=== PATIENT | female | born 1950 | race Caucasian/White ===

== ENCOUNTER 2024-01-31 07:35 | Inpatient (IN) | payer MEDICARE, MEDICAID, SELFPAY ==
[2024-01-31] VITALS (14 sets, daily range): BP systolic 126–169; BP diastolic 86–111; PULSE 108–133; RESP 16–24; TEMP 36.4–36.9; O2SAT 85–100; BMI 19.2
--- NOTE | ~2024-01-31 | XR_ITS ---
EXAMINATION: [id number] DATE: 02/01/2024 10:46 INDICATION: Small bowel obstruction. Difficulty with nasogastric tube placement. TECHNIQUE: Fluoroscopy was utilized during attempted placement of a nasogastric tube. 25 mL of Omnipa que 240 water-soluble contrast was injected through the tube to delineate the anatomy at the gastroes ophageal junction into peristalsis to aid in assessment of the tube. This was unsuccessful and the co ntrast within the esophagus was aspirated through the tube prior to removal of the tube. Image 2 imag es images were recorded. The amount of fluoroscopy time used during this procedure was 2.6 minutes. T otal DAP was 5.303 Gycm^2. COMPARISON: CT abdomen and pelvis dated 01/31/2024 FINDINGS: The nasogastric tube was able to be advanced easily to the distal esophagus. Despite multiple attempt s over the course of 10 minutes the nasogastric tube is unable to be advanced beyond what based on pr ior CT appears to be a small hiatal hernia with Richa fundoplication. Over the course of 10 minutes none of the contrast may distal esophagus passed through the gastroesophageal junction. IMPRESSION: 1. Unsuccessful attempt at placement of a nasogastric tube secondary to a likely hiatal hernia with N issen fundoplication which also prevented the passage of contrast in the distal esophagus into the st omach over the course of the 10 minutes of observation while attempting to advance the tube. Reviewed, dictated and finalized at location [facility]. ING MACHINE OPERATOR IMPRESSION: 1. Unsuccessful attempt at placement of a nasogastric tube secondary to a likel y hiatal hernia with Richa fundoplication which also prevented the passage of contrast in the distal esophagus into the stomach over the course of the 10 min utes of observation while attempting to advance the tube.
--- NOTE | ~2024-01-31 | CT_ITS ---
CT of the Abdomen and Pelvis: Indication: Bowel obstruction Technique: 2.5 mm axial scans were obtained through the abdomen and pelvis following intravenous adm inistration of 100 cc of Omnipaque 350. Dose reduction technique was used on this scan by utilizing a utomated exposure control and iterative reconstruction technique. The dose-length product (DLP) was 3 17.82 mGy-cm. Findings: Scans through the lung bases demonstrate probable bibasilar atelectatic change, left worse than right. Left basilar pneumonia not excluded. Small hiatal hernia and probable dilatation the vis ualized distal esophagus.. The liver, spleen, pancreas, gallbladder, adrenals and kidneys are within normal limits. No evidence of aortic aneurysm. No lymphadenopathy. IVC filter present. There are multiple dilated small bowel loops, with abrupt transition point at the distal small bowel (axial image 89, coronal image 43), without discrete mass lesion present. Evidence of prior large bow el surgery. Images through the pelvis are degraded by streak artifact from left hip arthroplasty. Urinary bladder grossly unremarkable. Calcified uterine fibroids are present. No ascites. Compression fractures of T 12 and L2 are present. Impression: Small bowel obstruction, transition point of the distal small bowel, as detailed above. Probable bibasilar atelectatic change. Correlate clinically for left basilar pneumonia. Impression fractures of T12 and L2, age-indeterminate. Calcified uterine fibroids. Reviewed, dictated and finalized at [facility]. APPEALS Impression: Small bowel obstruction, transition point of the distal small bowel, as detaile d above. Probable bibasilar atelectatic change. Correlate clinically for left basilar pn eumonia. Impression fractures of T12 and L2, age-indeterminate. Calcified uterine fibroids.
--- NOTE | 2024-01-31 07:51 | ECG_ITS ---
Test Date: 2024-01-31 07:52:45 Measurements Intervals [place] Rate: 118 P: 62 AK: 138 QRS: 32 QRSD: 76 T: 32 QT: 322 QTc: 452 Interpretive Statements SINUS TACHYCARDIA INDETERMINATE AXIS PATTERN CONSISTENT WITH PULMONARY DISEASE PROBABLE INFERIOR MYOCARDIAL INFARCTION , PROBABLY OLD [35 ms Q WAVE IN II/aVF] ABNORMAL IN SOON Electronically Signed On 01-31-2024 09:02:29 [employer] by Miguel Day M.D.
--- NOTE | 2024-01-31 08:09 | ED_ITS ---
HPI - Nausea/Vomiting/Diarrhea General Chief complaint: Nausea/Vomiting/Diarrhea Stated complaint: r/o SBO Time Seen by Provider: 01/31/24 07:52 Source: patient and RN notes reviewed Mode of arrival: EMS History of Present Illness HPI Narrative: Patient presents from nursing facility with concern for small bowel obstruction. Patient reports that she has been nauseated and vomiting and is experiencing dizziness. She states that she has had chronic diarrhea since March and she was told she would just have to live with this and that there is no cure. Initially she denied having any abdominal surgeries to the nurse however she does have well-healed abdominal surgical scars and when I asked her about this she can definitively say that she had 3/4 of her colon removed due to cancer. She states her last bowel movement was yesterday and it was diarrheal but then she has not had a bowel movement since and this was concerning to her given the fact that her diarrhea has otherwise been chronic before that. She does state that she is continuing to pass flatus. Patient's medication list does have apixaban on it. Related Data Home Medications Medication Instructions Recorded Confirmed Calcium-Vitamin D 1 tab-cap PO DAILY 01/31/24 01/31/24 acetaminophen 500 mg tablet 1,000 mg PO Q6H PRN Pain (Scale 01/31/24 01/31/24 Score 1-3) apixaban 5 mg tablet (Eliquis) 5 mg PO BID 01/31/24 01/31/24 bisacodyl 10 mg rectal suppository 10 mg RECTAL DAILY PRN Constipation 01/31/24 01/31/24 (Dulcolax (bisacodyl)) buspirone 5 mg tablet 5 mg PO TID 01/31/24 01/31/24 diphenoxylate-atropine 2.5 1 tablet PO TID PRN Diarrhea 01/31/24 01/31/24 mg-0.025 mg tablet (Lomotil) gabapentin 100 mg tablet 200 mg PO BID 01/31/24 01/31/24 haloperidol 0.5 mg tablet 0.5 mg PO BID 01/31/24 01/31/24 hydrocodone 5 mg-acetaminophen 325 1 tablet PO QID PRN Pain (Scale 01/31/24 01/31/24 mg tablet Score 4-6) lamotrigine 100 mg tablet 100 mg PO BID 01/31/24 01/31/24 loperamide 2 mg capsule 2 mg PO Q4H PRN Diarrhea 01/31/24 01/31/24 lorazepam 0.5 mg tablet 0.5 mg PO BID PRN Anxiety 01/31/24 01/31/24 magnesium citrate (Citroma oral 296 ml PO DAILY PRN Constipation 01/31/24 01/31/24 solution) magnesium hydroxide 400 mg/5 mL 30 ml PO DAILY PRN Constipation 01/31/24 01/31/24 oral suspension (Milk of Magnesia) mecobalamin (vitamin B12) 1,000 1,000 mcg PO DAILY 01/31/24 01/31/24 mcg chewable tablet metoclopramide HCl 5 mg tablet 5 mg PO TID 01/31/24 01/31/24 (Reglan) midodrine 5 mg tablet 5 mg PO TID PRN Hypotension 01/31/24 01/31/24 multivit with minerals-iron 18 1 tablet PO DAILY 01/31/24 01/31/24 mg-folic ac 400 mcg-vit K 25 mcg tablet (Adults Multivitamin) ondansetron 4 mg disintegrating 4 mg PO Q6H 01/31/24 01/31/24 tablet pantoprazole 40 mg tablet,delayed 40 mg PO DAILY 01/31/24 01/31/24 release paroxetine HCl 40 mg tablet 40 mg PO DAILY 01/31/24 01/31/24 quetiapine 400 mg tablet 400 mg PO HS 01/31/24 01/31/24 quetiapine 50 mg tablet 50 mg PO DAILY 01/31/24 01/31/24 Allergies Allergy/AdvReac Type Severity Reaction Status Date / Time fluconazole Allergy Unknown Verified 01/31/24 08:27 [facility] Past Medical History Medical History Anemia, unspecified Bipolar disorder, unspecified Chronic kidney disease, stage 3a Generalized anxiety disorder Malignant neoplasm of colon, unspecified Type 2 diabetes mellitus without complications Unspecified fracture of fifth metacarpal bone, right hand, subsequent encounter for fracture with routine healing Volvulus Surgical History Surgical History History of abdominal surgery secondary to volvulus History of colon resection History of repair of hiatal hernia Social History Social History Social History: DNR per jail documentation; POLST signed 01/05/24 confirms no CPR/comfort-focused treatment Smoking status: Never smoker Alcohol intake: never Substance use: never Do You Feel Safe in your Home?: Yes Lack of Transportation: No Lack of Food: Never True Current Housing: I Have Housing Concerned About Future Housing: No Difficulty Paying Gas/Electric Bills: No Difficulty Paying for Meds: No Currently Unemployed: No Education: High School Diploma/GED Difficulty w/ Childcare or Family Care: No Living arrangements: jail Additional living arrangements comments: [facility] care concerns: No Exam Narrative: GENERAL: well-nourished, but appears uncomfortable and older than stated age HEAD: Normocephalic, atraumatic. Alopecia. EYES: Non injected, non icteric ENT: Nares clear, no rhinorrhea or epistaxis. NECK: Supple. CHEST: Speaking in full sentences. No respiratory distress. HEART: Tachycardic rate and rhythm. . ABDOMEN: Soft, distended. Nauseated with emesis bag beside her and vomitus on shirt. Tenderness to palpation throughout. WEll healed low hoizontal pelvic/abdominal surgical scar as well one in RLQ. No rigidity and not peritoneal. EXTREMITIES: Normal range of motion. No lower extremity edema. SKIN: Warm, dry, no rash. NEURO: No focal deficits. Alert and oriented x3. Can answer basic health history questions but at other times seems confused. PSYCH: Normal mood and affect. Course Vital Signs Vital signs: Vital Signs Temperature 97.6 F 01/31/24 08:01 Pulse Rate 122 H 01/31/24 08:01 Respiratory Rate 24 H 01/31/24 08:01 Blood Pressure 126/88 01/31/24 08:01 Pulse Oximetry 98 01/31/24 08:01 Temperature 97.7 F 02/01/24 06:00 Pulse Rate 92 02/01/24 06:00 Respiratory Rate 16 02/01/24 06:00 Blood Pressure 121/81 02/01/24 06:00 Pulse Oximetry 98 02/01/24 06:00 Oxygen Delivery Room Air 01/31/24 21:51 MDM - Nausea/Vomiting/Diarrhea MDM Narrative Medical decision making narrative: Patient presents from facility with concern for small bowel obstruction. In the emergency department she is afebrile with vital signs notable for tachycardia and tachypnea. She has a history of chronic diarrhea for nearly a year. My differential diagnosis for chronic diarrhea includes, but not limited to: Infectious (giardia, E histolytica, C difficile), medications (antibiotics, antacids, lactulose, sorbitol, chemotherapy, colchicine, gold), inflammatory etiology (such as IBD, radiation enteritis, ischemic colitis, diverticulitis). Also possible are malabsorption issues due to bile salt deficiency (cirrhosis, cholestasis, ileal disease, bacterial overgrowth), pancreatic insufficiency, mucosal abnormalities (celiac sprue, tropical sprue, Whipple disease), or lactose intolerance. They are also secretory causes such as hormonal (VIP, carcinoid tumor, medullary cancer of thyroid, a linear Pena, glucagon, thyroxine), laxative abuse, neoplasm; finally motility issues may be the cause (IBS, scleroderma, hyperthyroidism, diabetic autonomic neuropathy). However, she has stopped having diarrhea and this is concerning for bowel obstruction especially because patient has a history of colonic resection (thus her chronic diarrhea may be related to short gut.) Patient has very significant leukocytosis and lactic acidosis. Patient has received 1 L fluids from EMS. An additional L is ordered. CT with small bowel obstruction. Given patient has a leukocytosis and lactic acidosis, will initiate antibiotics. NG tube ordered. Patient is noted to be intermittently hypoxic. Patient does not wear oxygen at baseline. Supplemental oxygen is applied via nasal cannula. Patient has very mild hyperglycemia with an anion gap and slight acidosis on her CMP, suspect this is more due to starvation ketosis rather than DKA, especially as urine is without ketones. Considered euglycemic diabetic etiologies but patient is not on diabetic medications that can cause that. Patient elevated creatinine and does have chronic kidney disease stage IIIA listed on problem list from jail. Patient was noted to still be hypoxic however upon bedside evaluation it did appear that the nasal cannula had been removed during NG placement and had accidentally been left off. It was placed again in patient's hypoxia improved. Nevertheless, I believe patient would benefit from continued monitoring given her hemodynamics which continue to show tachycardia and intermittent hypoxia and for this reason she will be admitted to on medical-surgical bed with telemetry. Discussed patient with on-call surgeon Dr. Mendoza who concurs with the management. Patient discussed with on-call nurse practitioner [facility]. Patient states her pain is 8 out of 10 at this time. Additional medication ordered. Medical Records Attestation: I reviewed the patient's medical records. Medical records narrative: Patient had a one-view abdominal x-ray performed 01/30/2024 which had findings consistent with small intestinal obstruction. Follow-up abdominal pelvic CT evaluation with water-soluble oral contrast material and intravenous contrast material recommended for further correlation. Lab Data Attestation: I reviewed the patient's lab results. Lab results narrative: Proteinuria 02/01/24 06:25 02/01/24 06:25 Labs: Lab Results 01/31/24 01/31/24 01/31/24 Range/Units 08:05 08:16 08:21 WBC 21.1 H (4.5-10.0) K/mm3 RBC 5.90 H (4.2-5.4) M/mm3 Hgb 12.2 (12.0-15.0) g/dL Hct 40.0 (37.0-47.0) % MCV 67.8 L (80-100) fl MCH 20.7 L (26-34) pg MCHC 30.5 L (32-36) g/dl RDW 21.6 H (11.5-14.5) % Plt Count 316 (150-375) k/mm3 MPV TNP Immature Gran % (Auto) Not Reportable Neut % (Auto) Not Reportable Lymph % (Auto) Not Reportable [place] % (Auto) Not Reportable Eos % (Auto) Not Reportable Baso % (Auto) Not Reportable Lymph # (Auto) Not Reportable [place] # (Auto) Not Reportable Eos # (Auto) Not Reportable Baso # (Auto) Not Reportable Abs Immat Gran (auto) Not Reportable Absolute Neuts (auto) Not Reportable Absolute Nucleated RBC Not Reportable Total Counted 100 Neutrophils % (Manual) 77 H (46-73) % Band Neutrophils % 14 H (0-6) % Lymphocytes % (Manual) 5 L (18-44) % Monocytes % (Manual) 3 (3-9) % Metamyelocytes % 1 % Nucleated RBC % Not Reportable Abs Neuts (Manual) 19.20 H (1.7-7.2) K/mm3 Abs Lymphs (Manual) 1.05 L (1.1-4.5) K/mm3 Abs Monocytes (Manual) 0.63 (0.1-0.90) K/mm3 Platelet Estimate Adequate (Adequate) Large Platelets Present % Immature Plt Fraction 6.0 (0.9-11.2) % Anisocytosis 1+ Schistocytes None seen Sodium 133 L (137-145) mmol/L Potassium 4.4 (3.4-5.0) mmol/L Chloride 99 (98-107) mmol/L Carbon Dioxide 20 L (22-30) mmol/L Anion Gap 14 H (4-12) mmol/L BUN 27 H (7-17) mg/dL Creatinine 1.30 H (0.7-1.0) mg/dL Estim Creat Clear Calc 25 ml/min Estimated GFR 40 L (59 - ) Glucose 154 H (65-110) mg/dL Lactic Acid 4.8 H* (0.7-2.0) mmol/L Calcium 9.4 (8.4-10.2) mg/dL Magnesium 1.7 (1.6-2.3) mg/dL Total Bilirubin 0.8 (0.2-1.3) mg/dL AST 24 (14-36) U/L ALT 22 (6-35) U/L Alkaline Phosphatase 98 (38-126) U/L Total Protein 8.0 (6.3-8.2) g/dL Albumin 4.4 (3.5-5.1) g/dL Lipase 27 (23-300) U/L Urine Color Yellow (Yellow) Urine Appearance Cloudy H (Clear) Urine pH 5.5 (5.0-9.0) Ur Specific [place] 1.016 (1.001-1.035) Urine Protein 3+ H (Negative) mg/dL Urine Glucose (UA) Negative (Negative) mg/dL Urine Ketones Negative (Negative) mg/dL Ur Blood (Man) Negative (Negative) Urine Nitrate Negative (Negative) Urine Bilirubin Negative (Negative) Urine Urobilinogen 0.2 (<2.0) mg/dL Add Ur Microanalysis Reviewed Leukocyte Esterase Rfl Negative (Negative) YADI/UL Urine RBC 0-2 (0-2) /hpf Urine WBC 0-5 (0-3) /hpf Ur Squamous Epith Cells None seen (Few) /hpf Ur Transition Epith Cell Few H (None Seen) /hpf Urine Bacteria None seen /hpf Urine Casts >20 Granular Casts Present (None) /lpf Urine Mucus Present /lpf Influenza A (RT-PCR) Negative (Negative) Influenza B (RT-PCR) Negative (Negative) SARS-CoV-2 RNA (RT-PCR) Negative (Negative) ABG Data ABG results: 01/31/24 11:42 Puncture Site Right brachial ABG pH 7.402 ABG pCO2 34.6 L ABG pO2 85.3 ABG PO2/FiO2 Ratio 2.67 ABG HCO3 21.0 L ABG O2 Saturation 96.5 ABG O2 Content 18.1 ABG Base Excess -3.0 A-a Gradient 102.4 Oxyhemoglobin 95.1 Total Hemoglobin 13.5 O2 Delivery Device Nasal cannula O2 Liters/Min 3.0 FiO2 32 Attestation: I personally reviewed and interpreted this ABG as follows: Interpretation: Respiratory alkalosis with metabolic acidosis although relatively normal/compensated Imaging Data Radiologist's impression: Impression: Small bowel obstruction, transition point of the distal small bowel, as detailed above. Probable bibasilar atelectatic change. Correlate clinically for left basilar pneumonia. Impression fractures of T12 and L2, age-indeterminate. Calcified uterine fibroids. ECG Data EKG #1: Attestation: I personally reviewed and interpreted this ECG as follows: ECG completion date: 01/31/24 ECG completion time: 07:52 Interpretation: Sinus tachycardia at a rate of 118 beats per minute. NV interval 138. QRS 76. QT/QTC 322/392. Good R-wave progression across the precordial leads. Indeterminate axis as it is equivocal in lead 1, equivocal in AVF and III but upright in II. no T-wave inversions. Discharge Plan Discharge Clinical Impression: Small bowel obstruction, Leukocytosis, Proteinuria, Compression fracture, Acidosis, lactic, Hypoxia, Controlled diabetes mellitus with hyperglycemia Pneumonia Qualifiers: Pneumonia type: due to unspecified organism Laterality: left Lung location: lower lobe of lung Qualified Code(s): J18.9 - Pneumonia, unspecified organism CKD (chronic kidney disease) Qualifiers: Chronic kidney disease stage: stage 3 (moderate) Chronic kidney disease stage 3 subtype: stage 3a (GFR 45-59) Qualified Code(s): N18.31 - Chronic kidney disease, stage 3a Patient Disposition: Still a Patient Condition: Stable
[2024-01-31 08:22] LABS: Hemoglobin 12.2 g/dL (12.0-15.0); Mean Corpuscular HGB Conc 30.5 g/dl (32-36); Mean Corpuscular Hemoglobin 20.7 pg (26-34); Mean Corpuscular Volume 67.8 fl (80-100); Platelet Count Result 316 k/mm3 (150-375); Red Cell Distribution Width 21.6 % (11.5-14.5); White Blood Count 21.1 K/mm3 (4.5-10.0)
[2024-01-31 08:38] LABS: Albumin Level 4.4 g/dL (3.5-5.1); Alkaline Phosphatase 98 U/L (38-126); Anion Gap 14 mmol/L (4-12); Aspartate Amino Transferase 24 U/L (14-36); Bilirubin,Total 0.8 mg/dL (0.2-1.3); Blood Urea Nitrogen 27 mg/dL (7-17); Calcium 9.4 mg/dL (8.4-10.2); Carbon Dioxide 20 mmol/L (22-30); Chloride 99 mmol/L (98-107); Estimated CRCL calculation 25 ml/min; Estimated Glomerular Filt Rate 40; Glucose 154 mg/dL (65-110); Lipase 27 U/L (23-300); Magnesium 1.7 mg/dL (1.6-2.3); Potassium 4.4 mmol/L (3.4-5.0); Sodium 133 mmol/L (137-145)
[2024-01-31 08:48] LABS: Alanine Aminotransferase 22 U/L (6-35)
[2024-01-31 08:48] LABS: Lactic Acid Reflex 4.8 mmol/L (0.7-2.0)
[2024-01-31 08:54] LABS: Add Urine Microscopic? YES; Appearance Urine Cloudy (Clear); Bacteria Urine None Seen /hpf; Bilirubin Urine Negative (Negative); Blood Urine Negative (Negative); Color Urine Yellow (Yellow); Glucose Urine UA Negative (Negative); Granular Casts Urine Present /lpf; Ketones Urine Negative (Negative); Leukocyte Esterase Ur Negative LEU/UL (Negative); Mucus Urine Present /lpf; Need Manual Microscopic Reviewed; Nitrate Urine Negative (Negative); Non Pathogenic Casts >20; Protein Urine 3+ mg/dL (Negative); RBC Urine 0-2 /hpf (0-2); Specific Grav Ur 1.016 (1.001-1.035); Squamous Epithelial Cell Urine None Seen /hpf (Few); Urobilinogen Urine 0.2 mg/dL (<2.0); WBC Urine 0-5 /hpf (0-3); pH Urine 5.5 (5.0-9.0)
[2024-01-31 08:59] LABS: Band Neutrophils Percent 14 % (0-6); Large Platelets Present; Lymphocytes Absolute Manual 1.05 K/mm3 (1.1-4.5); Lymphocytes Percent Manual 5 % (18-44); Metamyelocytes Percent 1 %; Monocytes Absolute Manual 0.63 K/mm3 (0.1-0.90); Monocytes Percent Manual 3 % (3-9); Neutrophils Percent Manual 77 % (46-73); Platelet Estimate Adequate (Adequate); Total Cells Counted 100
[2024-01-31 09:00] LABS: Anisocytosis 1+; Schistocytes None Seen
[2024-01-31 09:04] LABS: Transitional Epi Cells Urine Few /hpf (None Seen)
[2024-01-31 09:35] LABS: Influenza A QL RT-PCR Negative (Negative); Influenza B QL RT-PCR Negative (Negative); SARS-CoV-2 RNA PCR Negative (Negative)
[2024-01-31 11:29] LABS: Reflex Lactic Acid Yes or No Add Lactic
[2024-01-31] MEDS: HYDROmorphone HCL INJ (*CRX) 1 MG/ML SYR 0.5 MG IV PUSH ×3 (11:40→18:43)
[2024-01-31] MEDS: ONDANSETRON INJ 4 MG/2 ML VIAL IV PUSH ×4 (11:40→22:26)
[2024-01-31] MEDS: SODIUM CHLORIDE 0.9% IV 1,000 ML 999 ML IV CONT (11:40)
[2024-01-31 11:48] LABS: Alveolar/Arterial O2 Gradient 102.4 mmHg; Device NASAL CANNULA; Fractional Inspired Oxygen 32 %; Oxygen Content ABG 18.1 %vol (16.0-22.0); Oxygen Saturation ABG 96.5 % (95.0-100.0); Oxyhemoglobin 95.1 % THb (90.0-100.0); PCO2 ABG 34.6 mmHg (35.0-45.0); PO2 ABG 85.3 mmHg (80.0-100.0); PO2 FiO2 Ratio Arterial Blood 2.67 %; Site Drawn RIGHT BRACHIAL; Total Hemoglobin 13.5 g/dL (12.0-18.0); pH ABG 7.402 (7.350-7.450)
[2024-01-31] MEDS: PIPERACILLIN/TAZ 4.5G/NS 100ML 4.5 GM/100 ML BAG IVPB (12:41)
--- NOTE | 2024-01-31 12:47 | P.HP_ITS ---
H&P: HPI History of Present Illness Date/Time: 01/31/24 12:47 Chief Complaint: Abnormal Imaging, Diarrhea Narrative: 73 y/o F presents here with abnormal imaging and diarrhea with PMH of anemia, bipolar disorder or, CKD stage 3, generalized anxiety, malignant neoplasm of the colon s/p resection, diabetes, and volvulus. The patient presents here from [facility] for further evaluation of possible small bowel obstruction seen on outpatient imaging and diarrhea. The patient had outpatient imaging performed at alf yesterday which showed a small intestinal obstruction . She has been experiencing diarrhea and N/V for quite some time. She reports she has been having ongoing diarrhea since Mar. Then developed nausea and vomiting in the last 2 months. She is unsure what prompted the outpatient imaging. She is he has a history of abdominal surgeries including a colon resection secondary to malignant neoplasm of the colon, hiatal hernia repair, and abdominal surgery secondary to a volvulus. Bowel movements have been nonbloody and color has varied (yellow, brown, and green). Estimates she has had 3 episodes of diarrhea in the last 24 hours. Denies cough, shortness of breath, fever, or body aches. Reporting chills. Initial VS at presentation: 97.6 trace F, HR 122, RR 24, 126/80, and 90% on RA. ED workup showed: WBC 21.1, no anemia, mild derangements seen on ABG, sodium 133, creatinine 1.3 and GFR 40 (no previous available for comparison), glucose 154, lactic 4.8, and UA was cloudy with 3+ protein and few epithelial cells. Viral PCR negative. CT of the abdomen/pelvis showed a small-bowel obstruction with the transition point of the distal small bowel, probable by basilar atelectatic changes, correlate clinically for left basilar pneumonia, compression fractures of T12 and L2 age indeterminate, calcified uterine fibroids. Review of Systems Review of Systems: All systems reviewed & are unremarkable except as noted in HPI and below [facility] Past Medical History Medical History Anemia, unspecified Bipolar disorder, unspecified Chronic kidney disease, stage 3a Generalized anxiety disorder Malignant neoplasm of colon, unspecified Type 2 diabetes mellitus without complications Unspecified fracture of fifth metacarpal bone, right hand, subsequent encounter for fracture with routine healing Volvulus Surgical History Surgical History History of abdominal surgery secondary to volvulus History of colon resection History of repair of hiatal hernia Social History Social History Social History: DNR per alf documentation; POLST signed 01/05/24 confirms no CPR/comfort-focused treatment Smoking status: Never smoker Alcohol intake: never Substance use: never Do You Feel Safe in your Home?: Yes Lack of Transportation: No Lack of Food: Never True Current Housing: I Have Housing Concerned About Future Housing: No Difficulty Paying Gas/Electric Bills: No Difficulty Paying for Meds: No Currently Unemployed: No Education: High School Diploma/GED Difficulty w/ Childcare or Family Care: No Living arrangements: alf Additional living arrangements comments: Nabila Kirby [place] Spiritual care concerns: No Meds Home Medications and Allergies Home Medications Medication Instructions Recorded Confirmed Type Calcium-Vitamin D 1 tab-cap PO DAILY 01/31/24 01/31/24 History acetaminophen 500 mg tablet 1,000 mg PO Q6H PRN Pain (Scale 01/31/24 01/31/24 History Score 1-3) apixaban 5 mg tablet (Eliquis) 5 mg PO BID 01/31/24 01/31/24 History bisacodyl 10 mg rectal suppository 10 mg RECTAL DAILY PRN Constipation 01/31/24 01/31/24 History (Dulcolax (bisacodyl)) buspirone 5 mg tablet 5 mg PO TID 01/31/24 01/31/24 History diphenoxylate-atropine 2.5 1 tablet PO TID PRN Diarrhea 01/31/24 01/31/24 History mg-0.025 mg tablet (Lomotil) gabapentin 100 mg tablet 200 mg PO BID 01/31/24 01/31/24 History haloperidol 0.5 mg tablet 0.5 mg PO BID 01/31/24 01/31/24 History hydrocodone 5 mg-acetaminophen 325 1 tablet PO QID PRN Pain (Scale 01/31/24 01/31/24 History mg tablet Score 4-6) lamotrigine 100 mg tablet 100 mg PO BID 01/31/24 01/31/24 History loperamide 2 mg capsule 2 mg PO Q4H PRN Diarrhea 01/31/24 01/31/24 History lorazepam 0.5 mg tablet 0.5 mg PO BID PRN Anxiety 01/31/24 01/31/24 History magnesium citrate (Citroma oral 296 ml PO DAILY PRN Constipation 01/31/24 01/31/24 History solution) magnesium hydroxide 400 mg/5 mL 30 ml PO DAILY PRN Constipation 01/31/24 01/31/24 History oral suspension (Milk of Magnesia) mecobalamin (vitamin B12) 1,000 1,000 mcg PO DAILY 01/31/24 01/31/24 History mcg chewable tablet metoclopramide HCl 5 mg tablet 5 mg PO TID 01/31/24 01/31/24 History (Reglan) midodrine 5 mg tablet 5 mg PO TID PRN Hypotension 01/31/24 01/31/24 History multivit with minerals-iron 18 1 tablet PO DAILY 01/31/24 01/31/24 History mg-folic ac 400 mcg-vit K 25 mcg tablet (Adults Multivitamin) ondansetron 4 mg disintegrating 4 mg PO Q6H 01/31/24 01/31/24 History tablet pantoprazole 40 mg tablet,delayed 40 mg PO DAILY 01/31/24 01/31/24 History release paroxetine HCl 40 mg tablet 40 mg PO DAILY 01/31/24 01/31/24 History quetiapine 400 mg tablet 400 mg PO HS 01/31/24 01/31/24 History quetiapine 50 mg tablet 50 mg PO DAILY 01/31/24 01/31/24 History Allergies Allergy/AdvReac Type Severity Reaction Status Date / Time fluconazole Allergy Unknown Verified 01/31/24 08:27 Vital Signs Vital Signs - 24 hr 01/31/24 08:14 01/31/24 08:01 01/31/24 08:31 Temperature 97.6 F Pulse Rate 124 H 122 H 108 H Respiratory Rate 24 H 24 H 24 H Blood Pressure 139/99 H 126/88 140/86 Pulse Oximetry 95 98 96 Oxygen Delivery Room Air 01/31/24 09:16 Temperature 97.6 F Pulse Rate 119 H Respiratory Rate 19 Blood Pressure 169/111 H Pulse Oximetry 92 Oxygen Delivery Exam Const: General: comfortable and no acute distress Other: , female, elderly, chronically ill-appearing HENMT: Face/Nose/Sinus: Normal nares present Other: Tried tacky mucous membranes Eyes: General: appearance normal, both eyes and all related structures Sclera: sclerae normal Pupils: Equal, round and reactive pupils present EOM: EOMs intact bilaterally Resp: Effort & Inspection: normal respiratory effort Auscultation: clear to auscultation bilaterally Cardio: Rate: tachycardic (100-118) Rhythm: regular rhythm Other: Pounding quality without murmur or rub. GI: Other: Abdomen soft, nondistended. Tender in the left upper quadrant and left mid quadrant. Hypoactive bowel sounds in the upper quadrants and left lower quadrant, worse in the left lower quadrant. Normoactive bowel sounds in the right lower quadrant. Skin: General skin exam: normal color and no rashes or lesions noted Wounds: no wounds Neuro: Speech: normal speech Motor exam (neuro): 5/5 motor strength present throughout Sensory Exam: normal sensation Other: A&O x3, for recent situational recall. Extrem: Other: Trace edema to bilateral ankles, symmetric Psych: Mental Status: mental status grossly normal Affect: normal affect Other: Fair to poor insight and judgment, pleasant H&P: Results Labs Labs: Short CBC 01/31/24 Range/Units 08:05 WBC 21.1 H (4.5-10.0) K/mm3 Hgb 12.2 (12.0-15.0) g/dL Hct 40.0 (37.0-47.0) % Plt Count 316 (150-375) k/mm3 BMP 01/31/24 08:05 Sodium 133 L Potassium 4.4 Chloride 99 Carbon Dioxide 20 L BUN 27 H Creatinine 1.30 H Glucose 154 H Calcium 9.4 Liver Function 01/31/24 Range/Units 08:05 Total Bilirubin 0.8 (0.2-1.3) mg/dL AST 24 (14-36) U/L ALT 22 (6-35) U/L Alkaline Phosphatase 98 (38-126) U/L Albumin 4.4 (3.5-5.1) g/dL Urine 01/31/24 Range/Units 08:05 Urine Color Yellow (Yellow) Urine Appearance Cloudy H (Clear) Urine pH 5.5 (5.0-9.0) Ur Specific [place] 1.016 (1.001-1.035) Urine Protein 3+ H (Negative) mg/dL Urine Glucose (UA) Negative (Negative) mg/dL Assessment and Plan Assessment and plan (1) Sepsis: Qualifiers: Acute respiratory failure type: with hypoxia Sepsis acute organ dysfunction status: with acute organ dysfunction Sepsis type: sepsis due to u nspecified organism Severe sepsis acute organ dysfunction type: acute respiratory failure Severe sepsis shock status: without septic shock Qualified Code(s): A41.9 - Sepsis, unspecified organism; R65.20 - Severe sepsis without septic shock; J96.01 - Acute respiratory failure with hypoxia Code(s): A41.9 - Sepsis, unspecified organism Status: Acute Assessment and Plan: - meets SIRS criteria: HR, RR. Borderline hypoxia. - lactic acid: 4.8 -> 3.6, trend down - lactic elevated, procalcitonin added - 30 mL/kg = 1770, 2L bolus ordered - suspected source: possible abdominal etiology given obstruction, PNA - started on Zosyn in azithromycin on 01/30 - blood cultures drawn on 01/30 - UA: Cloudy, 3+ protein, few epithelial cells - CXR pending (2) Small bowel obstruction: Code(s): K56.609 - Unspecified intestinal obstruction, unspecified as to partial versus complete obstruction Status: Acute Assessment and Plan: - CT abd/pelvis Small bowel obstruction, transition point of the distal small bowel, as detailed above. Probable bibasilar atelectatic change. Correlate clinically for left basilar pneumonia. Impression fractures of T12 and L2, age-indeterminate. Calcified uterine fibroids. - bowel rest, NG unable to be placed in ED - general surgery consulted - IV fluids: 2L bolus -> 100 mL/hr - monitor I&Os - started on Zosyn on 01/30 - obtain c. diff and stool culture - hold Eliquis, start SCDs (3) Pneumonia: Qualifiers: Laterality: left Lung location: lower lobe of lung Pneumonia type: due to unspecified organism Qualified Code(s): J18.9 - Pneumonia, unspecified organism Code(s): J18.9 - Pneumonia, unspecified organism Status: Acute Assessment and Plan: - CT abd/pelvis: possible left basilar pneumonia, correlate clinically. - given borderline hypoxia, will obtain dedicated CXR and initiate coverage for community-acquired pneumonia - risk factors and complicating factors: [place] resident - started on CAP tx: Zosyn and doxycycline on 01/30 - MRSA PCR added - Viral PCR negative - no current supplemental O2 requirement, patient O2 sats borderline at 91-92% - supportive care (4) CKD (chronic kidney disease): Qualifiers: Chronic kidney disease stage: stage 3 (moderate) Chronic kidney disease stage 3 subtype: stage 3a (GFR 45-59) Qualified Code(s): N18.31 - Chronic kidney disease, stage 3a Code(s): N18.9 - Chronic kidney disease, unspecified Status: Chronic Assessment and Plan: - creatinine 1.3 and GFR 40, no baseline available - start with IV fluids, reassess function prior to further workup - trend renal function - trend electrolytes, correct as needed (5) Controlled diabetes mellitus with hyperglycemia: Code(s): E11.65 - Type 2 diabetes mellitus with hyperglycemia Status: Chronic Assessment and Plan: - hypoglycemia protocol - POC blood glucose ACHS - no current home medications - correct regimen ordered - low dose TIDWM, based off BMI - A1C ordered, none on file Plan Diet: NPO GI Prophylaxis: Pantoprazole IVP DVT Prophylaxis: SCDs, hold Eliquis in case of need for procedure Lines: Peripheral Code Status: DNR Quality VTE Prophylaxis VTE prophylaxis: mechanical ordered Hospitalist MIPS Advance Care Plan I have confirmed that the patient's Advanced Care Plan is present, code status is documented, or surrogate decision maker is listed in patient medical record.: Yes Medication Reconciliation I have utilized all available resources to obtain, update and review the patients current medications (includes all prescriptions, OTC, herbals, cannabis, and nutritional supplements).: Yes
--- NOTE | 2024-01-31 13:13 | PC.NURSE ---
4 unscuccessful NGT placement.
[2024-01-31 13:18] LABS: Lactic Acid 3.6 mmol/L (0.7-2.0)
[2024-01-31 13:24] LABS: Beta-Hydroxybutyrate/Acetoacetate 0.13 mmol/L (0.02-0.27)
[2024-01-31] MEDS: AZITHROMYCIN IV 250 MG in SODIUM CHLORIDE 0.9% IV 250 ML 125 MG IVPB (14:09)
[2024-01-31] MEDS: LACTATED RINGERS 1,000 ML 100 ML IV CONT (14:12)
--- NOTE | 2024-01-31 14:13 | ADMGEN ---
This patient, Cristel Dumont, was admitted to [facility] Surg Room 320-01. Patient/family oriented to hospital policies and general routines including ID bracelet, bed and alarms, visiting hours, pain management, procedures, bathroom and other care routines, personal items, smoking policy, room service/diet, and visiting hours. Information on how to activate the Rapid Response Team has been discussed. Patient/Family are encouraged to report perceived risks to care and to ask questions if they do not understand what they are told or what they should do.
[2024-01-31 14:30] LABS: Procalcitonin 0.5 ng/mL
--- NOTE | 2024-01-31 15:25 | PM.CNGS ---
Assessment and Plan Assessment and plan (1) Small bowel obstruction: Code(s): K56.609 - Unspecified intestinal obstruction, unspecified as to partial versus complete obstruction Status: Acute Assessment and Plan: Exam largely benign, patient having bowel function, continue serial exams, labs at this point, will likely need NG tube placement and bowel rest (2) Acidosis, lactic: Code(s): E87.20 - Acidosis, unspecified Status: Acute Assessment and Plan: likely secondary to dehydration, continue to resuscitate (3) Sepsis: Qualifiers: Sepsis type: sepsis due to unspecified organism Sepsis acute organ dysfunction status: with acute organ dysfunction Severe sepsis acute organ dysfunction type: acute respiratory failure Acute respiratory failure type: with hypoxia Severe sepsis shock status: without septic shock Qualified Code(s): A41.9 - Sepsis, unspecified organism; R65.20 - Severe sepsis without septic shock; J96.01 - Acute respiratory failure with hypoxia Code(s): A41.9 - Sepsis, unspecified organism Status: Acute Assessment and Plan: leukocytosis with altered mental status, agree with broad-spectrum antibiotics, continue to look for source History of Present Illness Consult details Consult date: 01/31/24 Reason for consult: abdominal pain Requesting physician: Alivia Vincent MD Narrative: The patient is a 68 female with multiple medical issues presenting to the emergency department complaining of abdominal pain, nausea and vomiting. The patient has an extensive abdominal surgical history including hiatal hernia repair and subtotal colectomy. The patient reports she had subtotal colectomy for malignancy and has had chronic issues with diarrhea post surgery. The patient reports over the last month she has also had issues with nausea and vomiting. Workup in the emergency department, including imaging, is significant for small bowel obstruction. Of note, the patient reports she has had 3 watery bowel movements over the last 24 hours. Review of Systems Review of Systems: All systems reviewed & are unremarkable except as noted in HPI and below PMFSH Past Medical History Medical History Anemia, unspecified Bipolar disorder, unspecified Chronic kidney disease, stage 3a Generalized anxiety disorder Malignant neoplasm of colon, unspecified Type 2 diabetes mellitus without complications Unspecified fracture of fifth metacarpal bone, right hand, subsequent encounter for fracture with routine healing Volvulus Surgical History Surgical History History of abdominal surgery secondary to volvulus History of colon resection History of repair of hiatal hernia Social History Social History Social History: DNR per retirement documentation; POLST signed 01/05/24 confirms no CPR/comfort-focused treatment Smoking status: Never smoker Alcohol intake: never Substance use: never Do You Feel Safe in your Home?: Yes Lack of Transportation: No Lack of Food: Never True Current Housing: I Have Housing Concerned About Future Housing: No Difficulty Paying Gas/Electric Bills: No Difficulty Paying for Meds: No Currently Unemployed: No Education: High School Diploma/GED Difficulty w/ Childcare or Family Care: No Living arrangements: retirement Additional living arrangements comments: Nabila Kirby [facility] care concerns: No Meds Home Medications and Allergies Home Medications Medication Instructions Recorded Confirmed Type Calcium-Vitamin D 1 tab-cap PO DAILY 01/31/24 01/31/24 History acetaminophen 500 mg tablet 1,000 mg PO Q6H PRN Pain (Scale 01/31/24 01/31/24 History Score 1-3) apixaban 5 mg tablet (Eliquis) 5 mg PO BID 01/31/24 01/31/24 History bisacodyl 10 mg rectal suppository 10 mg RECTAL DAILY PRN Constipation 01/31/24 01/31/24 History (Dulcolax (bisacodyl)) buspirone 5 mg tablet 5 mg PO TID 01/31/24 01/31/24 History diphenoxylate-atropine 2.5 1 tablet PO TID PRN Diarrhea 01/31/24 01/31/24 History mg-0.025 mg tablet (Lomotil) gabapentin 100 mg tablet 200 mg PO BID 01/31/24 01/31/24 History haloperidol 0.5 mg tablet 0.5 mg PO BID 01/31/24 01/31/24 History hydrocodone 5 mg-acetaminophen 325 1 tablet PO QID PRN Pain (Scale 01/31/24 01/31/24 History mg tablet Score 4-6) lamotrigine 100 mg tablet 100 mg PO BID 01/31/24 01/31/24 History loperamide 2 mg capsule 2 mg PO Q4H PRN Diarrhea 01/31/24 01/31/24 History lorazepam 0.5 mg tablet 0.5 mg PO BID PRN Anxiety 01/31/24 01/31/24 History magnesium citrate (Citroma oral 296 ml PO DAILY PRN Constipation 01/31/24 01/31/24 History solution) magnesium hydroxide 400 mg/5 mL 30 ml PO DAILY PRN Constipation 01/31/24 01/31/24 History oral suspension (Milk of Magnesia) mecobalamin (vitamin B12) 1,000 1,000 mcg PO DAILY 01/31/24 01/31/24 History mcg chewable tablet metoclopramide HCl 5 mg tablet 5 mg PO TID 01/31/24 01/31/24 History (Reglan) midodrine 5 mg tablet 5 mg PO TID PRN Hypotension 01/31/24 01/31/24 History multivit with minerals-iron 18 1 tablet PO DAILY 01/31/24 01/31/24 History mg-folic ac 400 mcg-vit K 25 mcg tablet (Adults Multivitamin) ondansetron 4 mg disintegrating 4 mg PO Q6H 01/31/24 01/31/24 History tablet pantoprazole 40 mg tablet,delayed 40 mg PO DAILY 01/31/24 01/31/24 History release paroxetine HCl 40 mg tablet 40 mg PO DAILY 01/31/24 01/31/24 History quetiapine 400 mg tablet 400 mg PO HS 01/31/24 01/31/24 History quetiapine 50 mg tablet 50 mg PO DAILY 01/31/24 01/31/24 History Allergies Allergy/AdvReac Type Severity Reaction Status Date / Time fluconazole Allergy Unknown Verified 01/31/24 08:27 Vital Signs Vital Signs - 24 hr 01/31/24 08:14 01/31/24 08:01 01/31/24 08:31 Temperature 36.4 C Pulse Rate 124 H 122 H 108 H Respiratory Rate 24 H 24 H 24 H Blood Pressure 139/99 H 126/88 140/86 Pulse Oximetry 95 98 96 Oxygen Delivery Room Air 01/31/24 09:16 01/31/24 10:16 01/31/24 11:01 Temperature 36.4 C 36.6 C 36.6 C Pulse Rate 119 H 133 H 128 H Respiratory Rate 19 20 18 Blood Pressure 169/111 H 144/106 H 156/110 H Pulse Oximetry 92 95 85 L Oxygen Delivery 01/31/24 12:01 01/31/24 13:01 Temperature 36.4 C 36.6 C Pulse Rate 114 H 118 H Respiratory Rate 17 19 Blood Pressure 169/103 H 150/94 H Pulse Oximetry 95 95 Oxygen Delivery Exam Const: General: cooperative, acute distress mild, confusion, ill appearing, tired appearing and uncomfortable HENMT: Head: normal to inspection, normocephalic and atraumatic Eyes: General: appearance normal, both eyes and all related structures Neck: Neck: normal visual inspection, full ROM and no lymphadenopathy Resp: Auscultation: diminished lung sounds Cardio: Rate: regular rate Rhythm: regular rhythm GI: Inspection: normal to inspection, distended and incision GI Palp: Yes abdominal tenderness, Yes Soft to palpation, Yes Tenderness to palpation present (GI), No Guarding due to palpation present (GI) and No Rigid due to palpation Skin: General skin exam: normal color and no rashes or lesions noted Neuro: General: patient oriented x3 and CN's II-XI intact bilaterally Extrem: General: normal to inspection and full ROM Results Labs 01/31/24 08:05 01/31/24 08:05 Labs: Abnormal lab results 01/31/24 01/31/24 01/31/24 Range/Units 08:05 08:16 11:42 WBC 21.1 H (4.5-10.0) K/mm3 RBC 5.90 H (4.2-5.4) M/mm3 MCV 67.8 L (80-100) fl MCH 20.7 L (26-34) pg MCHC 30.5 L (32-36) g/dl RDW 21.6 H (11.5-14.5) % Neutrophils % (Manual) 77 H (46-73) % Band Neutrophils % 14 H (0-6) % Lymphocytes % (Manual) 5 L (18-44) % Abs Neuts (Manual) 19.20 H (1.7-7.2) K/mm3 Abs Lymphs (Manual) 1.05 L (1.1-4.5) K/mm3 ABG pCO2 34.6 L (35.0-45.0) mmHg ABG HCO3 21.0 L (22.0-26.0) mEq/l Sodium 133 L (137-145) mmol/L Carbon Dioxide 20 L (22-30) mmol/L Anion Gap 14 H (4-12) mmol/L BUN 27 H (7-17) mg/dL Creatinine 1.30 H (0.7-1.0) mg/dL Estimated GFR 40 L (59 - ) Glucose 154 H (65-110) mg/dL Lactic Acid 4.8 H* (0.7-2.0) mmol/L Urine Appearance Cloudy H (Clear) Urine Protein 3+ H (Negative) mg/dL Ur Transition Epith Cell Few H (None Seen) /hpf 01/31/24 Range/Units 13:04 WBC (4.5-10.0) K/mm3 RBC (4.2-5.4) M/mm3 MCV (80-100) fl MCH (26-34) pg MCHC (32-36) g/dl RDW (11.5-14.5) % Neutrophils % (Manual) (46-73) % Band Neutrophils % (0-6) % Lymphocytes % (Manual) (18-44) % Abs Neuts (Manual) (1.7-7.2) K/mm3 Abs Lymphs (Manual) (1.1-4.5) K/mm3 ABG pCO2 (35.0-45.0) mmHg ABG HCO3 (22.0-26.0) mEq/l Sodium (137-145) mmol/L Carbon Dioxide (22-30) mmol/L Anion Gap (4-12) mmol/L BUN (7-17) mg/dL Creatinine (0.7-1.0) mg/dL Estimated GFR (59 - ) Glucose (65-110) mg/dL Lactic Acid 3.6 H (0.7-2.0) mmol/L Urine Appearance (Clear) Urine Protein (Negative) mg/dL Ur Transition Epith Cell (None Seen) /hpf Diabetes panel 01/31/24 Range/Units 08:05 Sodium 133 L (137-145) mmol/L Potassium 4.4 (3.4-5.0) mmol/L Chloride 99 (98-107) mmol/L Carbon Dioxide 20 L (22-30) mmol/L BUN 27 H (7-17) mg/dL Creatinine 1.30 H (0.7-1.0) mg/dL Glucose 154 H (65-110) mg/dL Calcium 9.4 (8.4-10.2) mg/dL AST 24 (14-36) U/L ALT 22 (6-35) U/L Alkaline Phosphatase 98 (38-126) U/L Total Protein 8.0 (6.3-8.2) g/dL Albumin 4.4 (3.5-5.1) g/dL Calcium panel 01/31/24 Range/Units 08:05 Calcium 9.4 (8.4-10.2) mg/dL Albumin 4.4 (3.5-5.1) g/dL Pituitary panel 01/31/24 Range/Units 08:05 Sodium 133 L (137-145) mmol/L Potassium 4.4 (3.4-5.0) mmol/L Chloride 99 (98-107) mmol/L Carbon Dioxide 20 L (22-30) mmol/L BUN 27 H (7-17) mg/dL Creatinine 1.30 H (0.7-1.0) mg/dL Glucose 154 H (65-110) mg/dL Calcium 9.4 (8.4-10.2) mg/dL Adrenal panel 01/31/24 Range/Units 08:05 Sodium 133 L (137-145) mmol/L Potassium 4.4 (3.4-5.0) mmol/L Chloride 99 (98-107) mmol/L Carbon Dioxide 20 L (22-30) mmol/L BUN 27 H (7-17) mg/dL Creatinine 1.30 H (0.7-1.0) mg/dL Glucose 154 H (65-110) mg/dL Calcium 9.4 (8.4-10.2) mg/dL Total Bilirubin 0.8 (0.2-1.3) mg/dL AST 24 (14-36) U/L ALT 22 (6-35) U/L Alkaline Phosphatase 98 (38-126) U/L Total Protein 8.0 (6.3-8.2) g/dL Albumin 4.4 (3.5-5.1) g/dL All other labs normal. Imaging Abdomen CT scan report/results: report reviewed and image reviewed
--- NOTE | 2024-01-31 15:41 | PC.NURSE ---
[address] Nesbitt office to notify them that er was unable to place ng tube. Fani Cortez NP aware
[2024-01-31] MEDS: MORPHINE SULFATE (*CRX) 4 MG/ML INJ IV PUSH (16:06)
[2024-01-31 16:16] LABS: MRSA (PCR) NOT DETECTED (NOT DETECTE)
[2024-01-31 16:38] LABS: Glucose Point of Care 185 mg/dl (65-105)
[2024-01-31] MEDS: PIPERACILLIN/TAZ 2.25G/NS 50ML 2.25 GM/50 ML BAG IVPB ×2 (17:16→23:39)
[2024-01-31] MEDS: DOXYCYCLINE 100 MG/NS 100 ML 100 MG/100 ML BAG IVPB (17:48)
--- NOTE | 2024-01-31 18:32 | PC.NURSE ---
2006 Luana Parada NP notified of hr 120 on tele and bp 162/98 and patient does not have ng tube.
--- NOTE | 2024-01-31 18:38 | PC.NURSE ---
Dr Mendoza notified that patient does not have ng tube, tube would not advance. New orders received.
[2024-01-31] MEDS: busPIRone HCL 5 MG TABLET PO (21:51)
[2024-01-31] MEDS: QUEtiapine FUMARATE 100 MG TABLET 400 MG PO (21:51)
[2024-01-31] MEDS: lamoTRIgine 100 MG TABLET PO (22:15)
[2024-01-31 23:33] LABS: Glucose Point of Care 170 mg/dl (65-105)
[2024-02-01] VITALS (10 sets, daily range): BP systolic 102–138; BP diastolic 66–88; PULSE 85–133; RESP 16; TEMP 36.5–36.9; O2SAT 91–98
[2024-02-01] MEDS: METOPROLOL TARTRATE 25 MG TABLET PO (02:00)
--- NOTE | 2024-02-01 02:12 | PC.NURSE ---
Dr. Luis Daniel Daniel, was notified pt pulse was ranging 125-130 bpm. Orders given, Metoprolol Tartrate 25 mg, PO one time. Patient is stable, denies chest pain or any discomfort. Will continue to monitor patient vital signs.
[2024-02-01] MEDS: HYDROmorphone HCL INJ (*CRX) 1 MG/ML SYR 0.5 MG IV PUSH ×5 (03:28→18:12)
[2024-02-01] MEDS: PIPERACILLIN/TAZ 2.25G/NS 50ML 2.25 GM/50 ML BAG IVPB ×3 (05:26→18:12)
[2024-02-01] MEDS: busPIRone HCL 5 MG TABLET PO ×2 (05:26→13:54)
[2024-02-01] MEDS: METOCLOPRAMIDE HCL 5 MG TABLET PO ×2 (05:33→17:11)
[2024-02-01] MEDS: DOXYCYCLINE 100 MG/NS 100 ML 100 MG/100 ML BAG IVPB ×2 (06:08→17:10)
[2024-02-01 06:57] LABS: Basophils Percent Auto 0.1 % (0.2-1.2); Eosinophils Percent Auto 0.1 % (0-4.4); Hematocrit 34.9 % (37.0-47.0); Hemoglobin 10.3 g/dL (12.0-15.0); Immature Granulocyte Absolute 0.06 K/mm3 (0.00-0.031); Immature Granulocyte Percent A 0.6 % (0-0.5); Immature Platelet Fraction Pct 6.5 % (0.9-11.2); Lymphocytes Absolute Auto 0.74 K/mm3 (0.9-3.2); Lymphocytes Percent Auto 7.1 % (18.3-44.2); Mean Corpuscular HGB Conc 29.5 g/dl (32-36); Mean Corpuscular Hemoglobin 20.4 pg (26-34); Mean Corpuscular Volume 69.2 fl (80-100); Monocytes Absolute Auto 0.7 K/mm3 (0.1-0.6); Monocytes Percent Auto 6.7 % (2.6-8.5); Neutrophils Absolute Auto 8.9 K/mm3 (1.3-6.7); Neutrophils Percent Auto 85.4 % (45.5-73.1); Platelet Count Result 233 k/mm3 (150-375); Red Blood Count 5.04 M/mm3 (4.2-5.4); Red Cell Distribution Width 20.9 % (11.5-14.5); White Blood Count 10.4 K/mm3 (4.5-10.0)
[2024-02-01 07:18] LABS: Alanine Aminotransferase 12 U/L (6-35); Albumin Level 3.6 g/dL (3.5-5.1); Alkaline Phosphatase 84 U/L (38-126); Anion Gap 6 mmol/L (4-12); Aspartate Amino Transferase 20 U/L (14-36); Bilirubin,Total 0.8 mg/dL (0.2-1.3); Blood Urea Nitrogen 29 mg/dL (7-17); Calcium 8.7 mg/dL (8.4-10.2); Carbon Dioxide 24 mmol/L (22-30); Chloride 103 mmol/L (98-107); Estimated CRCL calculation 37 ml/min; Estimated Glomerular Filt Rate 48; Glucose 143 mg/dL (65-110); Potassium 4.1 mmol/L (3.4-5.0); Sodium 133 mmol/L (137-145)
[2024-02-01 07:44] LABS: Anisocytosis 2+; Burr Cells 1+; Hypochromasia 1+; Ovalocytes 1+; Platelet Estimate Adequate (Adequate); Poikilocytosis 1+; Schistocytes None Seen; Stomatocytes 1+; Target Cells 1+
[2024-02-01 07:51] LABS: Hemoglobin A1C 5.8 % (<5.7)
[2024-02-01 07:55] LABS: Glucose Point of Care 141 mg/dl (65-105)
[2024-02-01] MEDS: ONDANSETRON INJ 4 MG/2 ML VIAL IV PUSH ×4 (07:55→20:36)
[2024-02-01] MEDS: PANTOPRAZOLE SODIUM IV 40 MG VIAL IV PUSH (07:58)
[2024-02-01] MEDS: lamoTRIgine 100 MG TABLET PO (08:01)
[2024-02-01] MEDS: HALOPERIDOL 0.5 MG TABLET PO ×2 (08:01→17:11)
[2024-02-01] MEDS: GABAPENTIN 100 MG CAPSULE 200 MG PO ×2 (08:02→17:11)
[2024-02-01] MEDS: PARoxetine 20 MG TABLET 40 MG PO (08:02)
[2024-02-01] MEDS: QUEtiapine FUMARATE 25 MG TABLET 50 MG PO (08:02)
--- NOTE | 2024-02-01 08:34 | PM.PNGS ---
Progress Note: A&P Assessment and Plan (1) Small bowel obstruction: Code(s): K56.609 - Unspecified intestinal obstruction, unspecified as to partial versus complete obstruction Status: Acute Assessment and Plan: labs improved c hydration, will attempt NG placement under fluoroscopy, possible SBS if NG tube placed Subjective Subjective Date/Time Seen: 02/01/24 08:34 Interval history: feels a little better, still c intermittent cramping, N/V Review of Systems Review of Systems: All systems reviewed & are unremarkable except as noted in HPI and below Exam Const: General: cooperative, acute distress mild and ill appearing Resp: Auscultation: clear to auscultation bilaterally Cardio: Rate: regular rate Rhythm: regular rhythm GI: Inspection: normal to inspection and distended GI Palp: Yes abdominal tenderness, Yes Soft to palpation, Yes Tenderness to palpation present (GI), No Guarding due to palpation present (GI) and No Rigid due to palpation Objective Data Vital Signs Vital Signs: Vital Signs - 24 hr 01/31/24 09:16 01/31/24 10:16 01/31/24 11:01 Temperature 36.4 C 36.6 C 36.6 C Pulse Rate 119 H 133 H 128 H Respiratory Rate 19 20 18 Blood Pressure 169/111 H 144/106 H 156/110 H Pulse Oximetry 92 95 85 L Oxygen Delivery 01/31/24 12:01 01/31/24 13:01 01/31/24 15:50 Temperature 36.4 C 36.6 C Pulse Rate 114 H 118 H 118 H Respiratory Rate 17 19 Blood Pressure 169/103 H 150/94 H 160/100 H Pulse Oximetry 95 95 Oxygen Delivery 01/31/24 17:24 01/31/24 16:00 01/31/24 21:51 Temperature Pulse Rate 114 H Respiratory Rate Blood Pressure 162/98 H Pulse Oximetry 95 Oxygen Delivery Room Air 01/31/24 20:00 01/31/24 22:00 02/01/24 02:00 Temperature 36.9 C Pulse Rate 119 H 120 H 131 H Respiratory Rate 16 Blood Pressure 144/95 H Pulse Oximetry 100 Oxygen Delivery 02/01/24 00:03 02/01/24 01:58 02/01/24 04:01 Temperature 36.7 C Pulse Rate 133 H 130 H 94 Respiratory Rate 16 Blood Pressure 102/66 Pulse Oximetry 94 Oxygen Delivery 02/01/24 06:00 Temperature 36.5 C Pulse Rate 92 Respiratory Rate 16 Blood Pressure 121/81 Pulse Oximetry 98 Oxygen Delivery Intake/Output Intake/Output: Intake & Output 01/29/24 01/30/24 01/31/24 02/01/24 23:59 23:59 23:59 23:59 Intake Total 1250 100 Output Total 30 400 Balance 1220 -300 Meds/Results Medications: Active Medications Generic Name Dose Route Start Last Admin Trade Name Freq PRN Reason Stop Dose Admin Acetaminophen 650 mg 01/31/24 13:09 Acetaminophen Elixir 325 Mg/10.15 Ml Udc PO Q6H PRN Mild Pain (1-3) or Fever Hydrocodone Bitart/Acetaminophen 1 tab 01/31/24 16:05 Hydrocodone/Acetaminophen (*Crx) 5-325 Mg Tablet PO QID PRN Pain (Scale Score 4-6) Albuterol/Ipratropium 3 ml 01/31/24 13:03 Ipratropium 0.5 Mg/Albuterol Sulfate 2.5 Mg Ampul.Neb 3 Ml INHALATION Q6HRT PRN Wheezing Benzonatate 100 mg 01/31/24 13:03 Benzonatate 100 Mg Capsule PO TID PRN Cough Buspirone HCl 5 mg 01/31/24 17:00 02/01/24 05:26 Buspirone Hcl 5 Mg Tablet PO 5 mg Q8HR DONI Administration Dextrose 12.5 gm 01/31/24 13:09 Dextrose 50% 25 Gm/50 Ml Syringe IV PUSH PRN PRN Hypoglycemia Protocol Gabapentin 200 mg 01/31/24 17:00 02/01/24 08:02 Gabapentin 100 Mg Capsule PO 200 mg BID DONI Administration Glucagon 1 mg 01/31/24 13:09 Glucagon For Inj 1 Mg Vial IM PRN PRN Hypoglycemia Protocol Glucose 15 gm 01/31/24 13:09 Glucose Oral Gel 15 Gm Of Glucse In 37.5 Gm Tube PO PRN PRN Hypoglycemia Protocol Guaifenesin 600 mg 01/31/24 21:00 Guaifenesin 12 Hr 600 Mg Tabcr PO Q12HR PRN Congestion Haloperidol 0.5 mg 01/31/24 17:00 02/01/24 08:01 Haloperidol 0.5 Mg Tablet PO 0.5 mg BID DONI Administration Hydromorphone HCl 0.5 mg 01/31/24 14:06 02/01/24 07:56 Hydromorphone Hcl Inj (*Crx) 1 Mg/Ml Syr IV PUSH 0.5 mg Q3H PRN Administration Pain Rated 7-10 Lactated Ringer's 1,000 mls @ 100 mls/hr 01/31/24 12:50 01/31/24 14:12 Lr - Lactated Ringers Iv IV CONT 100 mls/hr .Q10H DONI Administration Piperacillin Sod/Tazobactam Sod 2.25 gm in 50 mls @ 100 mls/hr 01/31/24 18:00 02/01/24 05:56 Zosyn 2.25 Gm/Ns 50 Ml IVPB Infused Q6H DONI Infusion Dextrose 1,000 mls @ 100 mls/hr 01/31/24 13:09 Dextrose 5% 1,000 Ml IVPB PRN PRN Hypoglycemia Protocol Doxycycline Hyclate 100 mg in 100 mls @ 100 mls/hr 01/31/24 18:00 02/01/24 06:08 Vibramycin 100 Mg/Ns 100 Ml IVPB 100 mls/hr Q12H DONI Administration Insulin Aspart 2 - 5 units 01/31/24 17:00 02/01/24 08:01 Insulin Aspart (*Bkc) 100 Units/Ml SUB-Q Not Given TIDWM DONI Protocol Lamotrigine 100 mg 01/31/24 21:00 02/01/24 08:01 Lamotrigine 100 Mg Tablet PO 100 mg Q12HR DONI Administration Lorazepam 0.5 mg 01/31/24 16:05 Lorazepam (*Crx) 0.5 Mg Tablet PO BID PRN Anxiety Metoclopramide HCl 5 mg 01/31/24 16:30 02/01/24 05:33 Metoclopramide Hcl 5 Mg Tablet PO 5 mg TIDAC DONI Administration Midodrine 5 mg 01/31/24 16:05 Midodrine Hcl 2.5 Mg Tablet PO TID PRN Hypotension Ondansetron HCl 4 mg 01/31/24 12:49 02/01/24 07:55 Ondansetron Inj 4 Mg/2 Ml Vial IV PUSH 4 mg Q4H PRN Administration Nausea Pantoprazole Sodium 40 mg 02/01/24 09:00 02/01/24 07:58 Pantoprazole Sodium Iv 40 Mg Vial IV PUSH 40 mg QAM DONI Administration Paroxetine HCl 40 mg 02/01/24 09:00 02/01/24 08:02 Paroxetine 20 Mg Tablet PO 40 mg DAILY DONI Administration Quetiapine Fumarate 50 mg 02/01/24 09:00 02/01/24 08:02 Quetiapine Fumarate 25 Mg Tablet PO 50 mg DAILY DONI Administration Quetiapine Fumarate 400 mg 01/31/24 21:00 01/31/24 21:51 Quetiapine Fumarate 100 Mg Tablet PO 400 mg HS DONI Administration Radiology Results: ITS Impressions Abdomen/Pelvis CT 01/31/24 09:02 Impression: Small bowel obstruction, transition point of the distal small bowel, as detailed above. Probable bibasilar atelectatic change. Correlate clinically for left basilar pneumonia. Impression fractures of T12 and L2, age-indeterminate. Calcified uterine fibroids. Labs Labs: Laboratory Results - last 24 hr 01/31/24 01/31/24 01/31/24 08:05 08:16 08:21 WBC 21.1 H RBC 5.90 H Hgb 12.2 Hct 40.0 MCV 67.8 L MCH 20.7 L MCHC 30.5 L RDW 21.6 H Plt Count 316 MPV TNP Immature Gran % (Auto) Not Reportable Neut % (Auto) Not Reportable Lymph % (Auto) Not Reportable [place] % (Auto) Not Reportable Eos % (Auto) Not Reportable Baso % (Auto) Not Reportable Lymph # (Auto) Not Reportable [place] # (Auto) Not Reportable Eos # (Auto) Not Reportable Baso # (Auto) Not Reportable Abs Immat Gran (auto) Not Reportable Absolute Neuts (auto) Not Reportable Absolute Nucleated RBC Not Reportable Total Counted 100 Neutrophils % (Manual) 77 H Band Neutrophils % 14 H Lymphocytes % (Manual) 5 L Monocytes % (Manual) 3 Metamyelocytes % 1 Nucleated RBC % Not Reportable Abs Neuts (Manual) 19.20 H Abs Lymphs (Manual) 1.05 L Abs Monocytes (Manual) 0.63 Platelet Estimate Adequate Large Platelets Present % Immature Plt Fraction 6.0 Hypochromasia Poikilocytosis Anisocytosis 1+ Target Cells Ovalocytes Stomatocytes [place] Cells Schistocytes None seen Puncture Site ABG pH ABG pCO2 ABG pO2 ABG PO2/FiO2 Ratio ABG HCO3 ABG O2 Saturation ABG O2 Content ABG Base Excess A-a Gradient Oxyhemoglobin Total Hemoglobin O2 Delivery Device O2 Liters/Min FiO2 Sodium 133 L Potassium 4.4 Chloride 99 Carbon Dioxide 20 L Anion Gap 14 H BUN 27 H Creatinine 1.30 H Estim Creat Clear Calc 25 Estimated GFR 40 L Glucose 154 H POC Capillary Glucose Hemoglobin A1c Lactic Acid 4.8 H* Calcium 9.4 Magnesium 1.7 Total Bilirubin 0.8 AST 24 ALT 22 Alkaline Phosphatase 98 Total Protein 8.0 Albumin 4.4 Lipase 27 Beta-Hydroxybutyrate/Acetoacetate Procalcitonin Urine Color Yellow Urine Appearance Cloudy H Urine pH 5.5 Ur Specific [place] 1.016 Urine Protein 3+ H Urine Glucose (UA) Negative Urine Ketones Negative Ur Blood (Man) Negative Urine Nitrate Negative Urine Bilirubin Negative Urine Urobilinogen 0.2 Add Ur Microanalysis Reviewed Leukocyte Esterase Rfl Negative Urine RBC 0-2 Urine WBC 0-5 Ur Squamous Epith Cells None seen Ur Transition Epith Cell Few H Urine Bacteria None seen Urine Casts >20 Granular Casts Present Urine Mucus Present Nasal MRSA (PCR) Influenza A (RT-PCR) Negative Influenza B (RT-PCR) Negative SARS-CoV-2 RNA (RT-PCR) Negative 01/31/24 01/31/24 01/31/24 11:42 13:04 14:33 WBC RBC Hgb Hct MCV MCH MCHC RDW Plt Count MPV Immature Gran % (Auto) Neut % (Auto) Lymph % (Auto) [place] % (Auto) Eos % (Auto) Baso % (Auto) Lymph # (Auto) [place] # (Auto) Eos # (Auto) Baso # (Auto) Abs Immat Gran (auto) Absolute Neuts (auto) Absolute Nucleated RBC Total Counted Neutrophils % (Manual) Band Neutrophils % Lymphocytes % (Manual) Monocytes % (Manual) Metamyelocytes % Nucleated RBC % Abs Neuts (Manual) Abs Lymphs (Manual) Abs Monocytes (Manual) Platelet Estimate Large Platelets % Immature Plt Fraction Hypochromasia Poikilocytosis Anisocytosis Target Cells Ovalocytes Stomatocytes [place] Cells Schistocytes Puncture Site Right brachial ABG pH 7.402 ABG pCO2 34.6 L ABG pO2 85.3 ABG PO2/FiO2 Ratio 2.67 ABG HCO3 21.0 L ABG O2 Saturation 96.5 ABG O2 Content 18.1 ABG Base Excess -3.0 A-a Gradient 102.4 Oxyhemoglobin 95.1 Total Hemoglobin 13.5 O2 Delivery Device Nasal cannula O2 Liters/Min 3.0 FiO2 32 Sodium Potassium Chloride Carbon Dioxide Anion Gap BUN Creatinine Estim Creat Clear Calc Estimated GFR Glucose POC Capillary Glucose Hemoglobin A1c Lactic Acid 3.6 H Calcium Magnesium Total Bilirubin AST ALT Alkaline Phosphatase Total Protein Albumin Lipase Beta-Hydroxybutyrate/Acetoacetate 0.13 Procalcitonin 0.5 Urine Color Urine Appearance Urine pH Ur Specific [place] Urine Protein Urine Glucose (UA) Urine Ketones Ur Blood (Man) Urine Nitrate Urine Bilirubin Urine Urobilinogen Add Ur Microanalysis Leukocyte Esterase Rfl Urine RBC Urine WBC Ur Squamous Epith Cells Ur Transition Epith Cell Urine Bacteria Urine Casts Granular Casts Urine Mucus Nasal MRSA (PCR) Not detected Influenza A (RT-PCR) Influenza B (RT-PCR) SARS-CoV-2 RNA (RT-PCR) 01/31/24 01/31/24 02/01/24 16:32 22:17 06:25 WBC 10.4 H RBC 5.04 Hgb 10.3 L Hct 34.9 L MCV 69.2 L MCH 20.4 L MCHC 29.5 L RDW 20.9 H Plt Count 233 MPV TNP Immature Gran % (Auto) 0.6 H Neut % (Auto) 85.4 H Lymph % (Auto) 7.1 L [place] % (Auto) 6.7 Eos % (Auto) 0.1 Baso % (Auto) 0.1 L Lymph # (Auto) 0.74 L [place] # (Auto) 0.7 H Eos # (Auto) 0.0 Baso # (Auto) 0.0 Abs Immat Gran (auto) 0.06 H Absolute Neuts (auto) 8.9 H Absolute Nucleated RBC 0.000 Total Counted Neutrophils % (Manual) Band Neutrophils % Lymphocytes % (Manual) Monocytes % (Manual) Metamyelocytes % Nucleated RBC % 0.0 Abs Neuts (Manual) Abs Lymphs (Manual) Abs Monocytes (Manual) Platelet Estimate Adequate Large Platelets % Immature Plt Fraction 6.5 Hypochromasia 1+ Poikilocytosis 1+ Anisocytosis 2+ Target Cells 1+ Ovalocytes 1+ Stomatocytes 1+ [place] Cells 1+ Schistocytes None seen Puncture Site ABG pH ABG pCO2 ABG pO2 ABG PO2/FiO2 Ratio ABG HCO3 ABG O2 Saturation ABG O2 Content ABG Base Excess A-a Gradient Oxyhemoglobin Total Hemoglobin O2 Delivery Device O2 Liters/Min FiO2 Sodium 133 L Potassium 4.1 Chloride 103 Carbon Dioxide 24 Anion Gap 6 BUN 29 H Creatinine 1.10 H Estim Creat Clear Calc 37 Estimated GFR 48 L Glucose 143 H POC Capillary Glucose 185 H 170 H Hemoglobin A1c 5.8 H Lactic Acid Calcium 8.7 Magnesium Total Bilirubin 0.8 AST 20 ALT 12 Alkaline Phosphatase 84 Total Protein 6.0 L Albumin 3.6 Lipase Beta-Hydroxybutyrate/Acetoacetate Procalcitonin Urine Color Urine Appearance Urine pH Ur Specific [place] Urine Protein Urine Glucose (UA) Urine Ketones Ur Blood (Man) Urine Nitrate Urine Bilirubin Urine Urobilinogen Add Ur Microanalysis Leukocyte Esterase Rfl Urine RBC Urine WBC Ur Squamous Epith Cells Ur Transition Epith Cell Urine Bacteria Urine Casts Granular Casts Urine Mucus Nasal MRSA (PCR) Influenza A (RT-PCR) Influenza B (RT-PCR) SARS-CoV-2 RNA (RT-PCR) 02/01/24 07:34 WBC RBC Hgb Hct MCV MCH MCHC RDW Plt Count MPV Immature Gran % (Auto) Neut % (Auto) Lymph % (Auto) [place] % (Auto) Eos % (Auto) Baso % (Auto) Lymph # (Auto) [place] # (Auto) Eos # (Auto) Baso # (Auto) Abs Immat Gran (auto) Absolute Neuts (auto) Absolute Nucleated RBC Total Counted Neutrophils % (Manual) Band Neutrophils % Lymphocytes % (Manual) Monocytes % (Manual) Metamyelocytes % Nucleated RBC % Abs Neuts (Manual) Abs Lymphs (Manual) Abs Monocytes (Manual) Platelet Estimate Large Platelets % Immature Plt Fraction Hypochromasia Poikilocytosis Anisocytosis Target Cells Ovalocytes Stomatocytes [place] Cells Schistocytes Puncture Site ABG pH ABG pCO2 ABG pO2 ABG PO2/FiO2 Ratio ABG HCO3 ABG O2 Saturation ABG O2 Content ABG Base Excess A-a Gradient Oxyhemoglobin Total Hemoglobin O2 Delivery Device O2 Liters/Min FiO2 Sodium Potassium Chloride Carbon Dioxide Anion Gap BUN Creatinine Estim Creat Clear Calc Estimated GFR Glucose POC Capillary Glucose 141 H Hemoglobin A1c Lactic Acid 2.0 Calcium Magnesium Total Bilirubin AST ALT Alkaline Phosphatase Total Protein Albumin Lipase Beta-Hydroxybutyrate/Acetoacetate Procalcitonin Urine Color Urine Appearance Urine pH Ur Specific [place] Urine Protein Urine Glucose (UA) Urine Ketones Ur Blood (Man) Urine Nitrate Urine Bilirubin Urine Urobilinogen Add Ur Microanalysis Leukocyte Esterase Rfl Urine RBC Urine WBC Ur Squamous Epith Cells Ur Transition Epith Cell Urine Bacteria Urine Casts Granular Casts Urine Mucus Nasal MRSA (PCR) Influenza A (RT-PCR) Influenza B (RT-PCR) SARS-CoV-2 RNA (RT-PCR)
[2024-02-01] MEDS: LACTATED RINGERS 1,000 ML 100 ML IV CONT (09:31)
[2024-02-01 11:47] LABS: Glucose Point of Care 119 mg/dl (65-105)
--- NOTE | 2024-02-01 15:50 | PM.IMPN ---
Progress Note: A&P Assessment and Plan (1) Sepsis: Qualifiers: Sepsis type: sepsis due to unspecified organism Sepsis acute organ dysfunction status: with acute organ dysfunction Severe sepsis acute organ dysfunction type: acute respiratory failure Acute respiratory failure type: with hypoxia Severe sepsis shock status: without septic shock Qualified Code(s): A41.9 - Sepsis, unspecified organism; R65.20 - Severe sepsis without septic shock; J96.01 - Acute respiratory failure with hypoxia Code(s): A41.9 - Sepsis, unspecified organism Status: Acute Assessment and Plan: - mets SIRS criteria on admission: HR, RR. Borderline hypoxia. - lactic acid: 4.8 -> 3.6 >> 2.0 - Procalcitonin 0.5 - 30 mL/kg = 1770, 2L bolus given. - suspected source: possible abdominal etiology given obstruction vs PNA - CT chest suggestive of possible Left basilar PNA. - started on Zosyn in azithromycin on 01/30 - blood cultures drawn on 01/30 - UA: Cloudy, 3+ protein, few epithelial cells. (2) Small bowel obstruction: Code(s): K56.609 - Unspecified intestinal obstruction, unspecified as to partial versus complete obstruction Status: Acute Assessment and Plan: - CT abd/pelvis Small bowel obstruction, transition point of the distal small bowel, as detailed above. Probable bibasilar atelectatic change. Correlate clinically for left basilar pneumonia. Impression fractures of T12 and L2, age-indeterminate. Calcified uterine fibroids. - bowel rest, NG unable to be placed in ED. - General surgery unable to place N-G tube. - Patient with Hx of hiatal hernia repair with possible Richa Fundoplication. - General surgery unable to advance NG to stomach, also contrast unable to advance from distal esophagus to stomach > 10 mins. - general surgery recommends pt be transferred to [facility] when hiatal hernia sx was done previously. - Will call [facility] for possible transfer. - Continue IVF hydration. - monitor I&Os - started on Zosyn on 01/30 - obtain c. diff and stool culture - hold Eliquis for now, started on SCDs. (3) Pneumonia: Qualifiers: Laterality: left Lung location: lower lobe of lung Pneumonia type: due to unspecified organism Qualified Code(s): J18.9 - Pneumonia, unspecified organism Code(s): J18.9 - Pneumonia, unspecified organism Status: Acute Assessment and Plan: - CT abd/pelvis: possible left basilar pneumonia, correlate clinically. - given borderline hypoxia, CXR ordered. - Abx for coverage of possible community-acquired pneumonia - Started on Zosyn and doxycycline on 01/30 - MRSA PCR pending. - Acute Viral PCR negative. - Patient currently with O2 sats borderline at 91-92% on RA. - supportive care (4) CKD (chronic kidney disease): Qualifiers: Chronic kidney disease stage: stage 3 (moderate) Chronic kidney disease stage 3 subtype: stage 3a (GFR 45-59) Qualified Code(s): N18.31 - Chronic kidney disease, stage 3a Code(s): N18.9 - Chronic kidney disease, unspecified Status: Chronic Assessment and Plan: - creatinine 1.3 and GFR 40, no baseline available - Continue IV fluids hydration. - trend renal panel. - trend electrolytes, correct as needed (5) Controlled diabetes mellitus with hyperglycemia: Code(s): E11.65 - Type 2 diabetes mellitus with hyperglycemia Status: Chronic Assessment and Plan: - hypoglycemia protocol - POC blood glucose ACHS - no current home medications. - Monitor blood-glucose for now low dose TIDWM, with poor PO intake. - A1C ordered on admission. Plan Diet: NPO GI Prophylaxis: Pantoprazole IVP DVT Prophylaxis: SCDs, hold Eliquis in case of need for procedure Lines: Peripheral Code Status: DNR Time Spent With Patient Time with patient: 25 - 35 minutes Subjective Date/time seen: 02/01/24 10:40 Patient states she feels alright but she's still nauseated with some abdominal pain but slightly improved. Interval history: Patient calm on bedrest and looks to be in no acute distress. Review of Systems Review of Systems: All systems reviewed & are unremarkable except as noted in HPI and below Exam Narrative: General: Fair appearing, gen muscle weakness. HEENT: Atraumatic, PERRL, EOM, moist mucosa. NECK: Supple. Lungs: Faint crackles to bases. Heart: RRR, no murmurs. Abdomen: Soft, non-distended, slightly tender to palpation, hypoactive bowel sounds X4 quadrants. Extremities: Acyanotic, no edema. Skin: Warm and dry with no lesions. Neuro: Well oriented. CN II-XII Grossly intact. Psych: Calm and co-operative. Objective Data Vital Signs Vital Signs: Vital Signs - 24 hr 01/31/24 17:24 01/31/24 16:00 01/31/24 21:51 Temperature Pulse Rate 114 H Respiratory Rate Blood Pressure 162/98 H Pulse Oximetry 95 Oxygen Delivery Room Air 01/31/24 20:00 01/31/24 22:00 02/01/24 02:00 Temperature 98.5 F Pulse Rate 119 H 120 H 131 H Respiratory Rate 16 Blood Pressure 144/95 H Pulse Oximetry 100 Oxygen Delivery 02/01/24 00:03 02/01/24 01:58 02/01/24 04:01 Temperature 98.0 F Pulse Rate 133 H 130 H 94 Respiratory Rate 16 Blood Pressure 102/66 Pulse Oximetry 94 Oxygen Delivery 02/01/24 06:00 02/01/24 08:00 02/01/24 08:00 Temperature 97.7 F Pulse Rate 92 85 Respiratory Rate 16 Blood Pressure 121/81 Pulse Oximetry 98 98 Oxygen Delivery Room Air 02/01/24 13:38 02/01/24 12:00 Temperature 98.4 F Pulse Rate 87 86 Respiratory Rate 16 Blood Pressure 138/88 Pulse Oximetry 91 Oxygen Delivery Intake/Output Intake/Output: Intake & Output 01/29/24 01/30/24 01/31/24 02/01/24 23:59 23:59 23:59 23:59 Intake Total 1250 1150 Output Total 30 400 Balance 1220 750 Meds/Results Medications: Active Medications Generic Name Dose Route Start Last Admin Trade Name Freq PRN Reason Stop Dose Admin Acetaminophen 650 mg 01/31/24 13:09 Acetaminophen Elixir 325 Mg/10.15 Ml Udc PO Q6H PRN Mild Pain (1-3) or Fever Hydrocodone Bitart/Acetaminophen 1 tab 01/31/24 16:05 Hydrocodone/Acetaminophen (*Crx) 5-325 Mg Tablet PO QID PRN Pain (Scale Score 4-6) Albuterol/Ipratropium 3 ml 01/31/24 13:03 Ipratropium 0.5 Mg/Albuterol Sulfate 2.5 Mg Ampul.Neb 3 Ml INHALATION Q6HRT PRN Wheezing Benzonatate 100 mg 01/31/24 13:03 Benzonatate 100 Mg Capsule PO TID PRN Cough Buspirone HCl 5 mg 01/31/24 17:00 02/01/24 13:54 Buspirone Hcl 5 Mg Tablet PO 5 mg Q8HR DONI Administration Dextrose 12.5 gm 01/31/24 13:09 Dextrose 50% 25 Gm/50 Ml Syringe IV PUSH PRN PRN Hypoglycemia Protocol Gabapentin 200 mg 01/31/24 17:00 02/01/24 08:02 Gabapentin 100 Mg Capsule PO 200 mg BID DONI Administration Glucagon 1 mg 01/31/24 13:09 Glucagon For Inj 1 Mg Vial IM PRN PRN Hypoglycemia Protocol Glucose 15 gm 01/31/24 13:09 Glucose Oral Gel 15 Gm Of Glucse In 37.5 Gm Tube PO PRN PRN Hypoglycemia Protocol Guaifenesin 600 mg 01/31/24 21:00 Guaifenesin 12 Hr 600 Mg Tabcr PO Q12HR PRN Congestion Haloperidol 0.5 mg 01/31/24 17:00 02/01/24 08:01 Haloperidol 0.5 Mg Tablet PO 0.5 mg BID DONI Administration Hydromorphone HCl 0.5 mg 01/31/24 14:06 02/01/24 14:56 Hydromorphone Hcl Inj (*Crx) 1 Mg/Ml Syr IV PUSH 0.5 mg Q3H PRN Administration Pain Rated 7-10 Lactated Ringer's 1,000 mls @ 100 mls/hr 01/31/24 12:50 02/01/24 09:31 Lr - Lactated Ringers Iv IV CONT 100 mls/hr .Q10H DONI Administration Piperacillin Sod/Tazobactam Sod 2.25 gm in 50 mls @ 100 mls/hr 01/31/24 18:00 02/01/24 13:55 Zosyn 2.25 Gm/Ns 50 Ml IVPB Infused Q6H DONI Infusion Dextrose 1,000 mls @ 100 mls/hr 01/31/24 13:09 Dextrose 5% 1,000 Ml IVPB PRN PRN Hypoglycemia Protocol Doxycycline Hyclate 100 mg in 100 mls @ 100 mls/hr 01/31/24 18:00 02/01/24 06:08 Vibramycin 100 Mg/Ns 100 Ml IVPB 100 mls/hr Q12H DONI Administration Insulin Aspart 2 - 5 units 01/31/24 17:00 02/01/24 11:55 Insulin Aspart (*Bkc) 100 Units/Ml SUB-Q Not Given TIDWM [facility] Protocol Lamotrigine 100 mg 01/31/24 21:00 02/01/24 08:01 Lamotrigine 100 Mg Tablet PO 100 mg Q12HR DONI Administration Lorazepam 0.5 mg 01/31/24 16:05 Lorazepam (*Crx) 0.5 Mg Tablet PO BID PRN Anxiety Metoclopramide HCl 5 mg 01/31/24 16:30 02/01/24 11:55 Metoclopramide Hcl 5 Mg Tablet PO Not Given TIDAC DONI Midodrine 5 mg 01/31/24 16:05 Midodrine Hcl 2.5 Mg Tablet PO TID PRN Hypotension Ondansetron HCl 4 mg 01/31/24 12:49 02/01/24 12:09 Ondansetron Inj 4 Mg/2 Ml Vial IV PUSH 4 mg Q4H PRN Administration Nausea Pantoprazole Sodium 40 mg 02/01/24 09:00 02/01/24 07:58 Pantoprazole Sodium Iv 40 Mg Vial IV PUSH 40 mg QAM DONI Administration Paroxetine HCl 40 mg 02/01/24 09:00 02/01/24 08:02 Paroxetine 20 Mg Tablet PO 40 mg DAILY DONI Administration Quetiapine Fumarate 50 mg 02/01/24 09:00 02/01/24 08:02 Quetiapine Fumarate 25 Mg Tablet PO 50 mg DAILY DONI Administration Quetiapine Fumarate 400 mg 01/31/24 21:00 01/31/24 21:51 Quetiapine Fumarate 100 Mg Tablet PO 400 mg HS DONI Administration Radiology Results: ITS Impressions Abdomen/Pelvis CT 01/31/24 09:02 Impression: Small bowel obstruction, transition point of the distal small bowel, as detailed above. Probable bibasilar atelectatic change. Correlate clinically for left basilar pneumonia. Impression fractures of T12 and L2, age-indeterminate. Calcified uterine fibroids. NG Tube Placement 02/01/24 10:49 IMPRESSION: 1. Unsuccessful attempt at placement of a nasogastric tube secondary to a likely hiatal hernia with Richa fundoplication which also prevented the passage of contrast in the distal esophagus into the stomach over the course of the 10 minutes of observation while attempting to advance the tube. Labs Labs: Laboratory Results - last 24 hr 01/31/24 01/31/24 01/31/24 14:33 16:32 22:17 WBC RBC Hgb Hct MCV MCH MCHC RDW Plt Count MPV Immature Gran % (Auto) Neut % (Auto) Lymph % (Auto) Power % (Auto) Eos % (Auto) Baso % (Auto) Lymph # (Auto) Power # (Auto) Eos # (Auto) Baso # (Auto) Abs Immat Gran (auto) Absolute Neuts (auto) Absolute Nucleated RBC Nucleated RBC % Platelet Estimate % Immature Plt Fraction Hypochromasia Poikilocytosis Anisocytosis Target Cells Ovalocytes Stomatocytes Chandan Cells Schistocytes Sodium Potassium Chloride Carbon Dioxide Anion Gap BUN Creatinine Estim Creat Clear Calc Estimated GFR Glucose POC Capillary Glucose 185 H 170 H Hemoglobin A1c Lactic Acid Calcium Total Bilirubin AST ALT Alkaline Phosphatase Total Protein Albumin Nasal MRSA (PCR) Not detected 02/01/24 02/01/24 02/01/24 06:25 07:34 11:34 WBC 10.4 H RBC 5.04 Hgb 10.3 L Hct 34.9 L MCV 69.2 L MCH 20.4 L MCHC 29.5 L RDW 20.9 H Plt Count 233 MPV TNP Immature Gran % (Auto) 0.6 H Neut % (Auto) 85.4 H Lymph % (Auto) 7.1 L Power % (Auto) 6.7 Eos % (Auto) 0.1 Baso % (Auto) 0.1 L Lymph # (Auto) 0.74 L Power # (Auto) 0.7 H Eos # (Auto) 0.0 Baso # (Auto) 0.0 Abs Immat Gran (auto) 0.06 H Absolute Neuts (auto) 8.9 H Absolute Nucleated RBC 0.000 Nucleated RBC % 0.0 Platelet Estimate Adequate % Immature Plt Fraction 6.5 Hypochromasia 1+ Poikilocytosis 1+ Anisocytosis 2+ Target Cells 1+ Ovalocytes 1+ Stomatocytes 1+ Chandan Cells 1+ Schistocytes None seen Sodium 133 L Potassium 4.1 Chloride 103 Carbon Dioxide 24 Anion Gap 6 BUN 29 H Creatinine 1.10 H Estim Creat Clear Calc 37 Estimated GFR 48 L Glucose 143 H POC Capillary Glucose 141 H 119 H Hemoglobin A1c 5.8 H Lactic Acid 2.0 Calcium 8.7 Total Bilirubin 0.8 AST 20 ALT 12 Alkaline Phosphatase 84 Total Protein 6.0 L Albumin 3.6 Nasal MRSA (PCR) Quality VTE Prophylaxis VTE prophylaxis: mechanical ordered Hospitalist MIPS Advance Care Plan I have confirmed that the patient's Advanced Care Plan is present, code status is documented, or surrogate decision maker is listed in patient medical record.: Yes Medication Reconciliation I have utilized all available resources to obtain, update and review the patients current medications (includes all prescriptions, OTC, herbals, cannabis, and nutritional supplements).: Yes
[2024-02-01 16:23] LABS: Glucose Point of Care 145 mg/dl (65-105)
--- NOTE | 2024-02-01 17:43 | P.CONGI_ITS ---
Assessment and Plan Assessment and plan (1) Small bowel obstruction: Code(s): K56.609 - Unspecified intestinal obstruction, unspecified as to partial versus complete obstruction Status: Acute Assessment and Plan: the patient has small bowel obstruction in need for nasogastric suction. However, the placement of an NG tube is technically challenging due to an apparent obstructive process versus excessive tightness in the wrap of the Richa fundoplication. Will perform EGD with the intention of aiding placement of an NG tube endoscopically. GI Consult Note Consult date/time: 02/01/24 17:43 HPI: Cristel Dumont is a 73 year old female with multiple medical issues presenting to the emergency department complaining of abdominal pain, nausea and vomiting. The patient has an extensive abdominal surgical history including hiatal hernia repair and subtotal colectomy. The patient reports she had subtotal colectomy for malignancy. The patient reports over the last month she has also had issues with nausea and vomiting. Her CT scan done in the ED showed a small bowel obstruction with a transition point. Importantly, an NG placement was unsuccessful due to a stop in the cardial region documented by contrast X rays this morning. There is an apparent stenosis, presumably associated with her history of Richa fundoplication. A consult to GI is requested to address this issue. Review of Systems Review of Systems: All systems reviewed & are unremarkable except as noted in HPI and below PMFSH Past Medical History Medical History Anemia, unspecified Bipolar disorder, unspecified Chronic kidney disease, stage 3a Generalized anxiety disorder Malignant neoplasm of colon, unspecified Type 2 diabetes mellitus without complications Unspecified fracture of fifth metacarpal bone, right hand, subsequent encounter for fracture with routine healing Volvulus Surgical History Surgical History History of abdominal surgery secondary to volvulus History of colon resection History of repair of hiatal hernia Social History Social History Social History: DNR per [facility] documentation; POLST signed 01/05/24 confirms no CPR/comfort-focused treatment Smoking status: Never smoker Alcohol intake: never Substance use: never Do You Feel Safe in your Home?: Yes Lack of Transportation: No Lack of Food: Never True Current Housing: I Have Housing Concerned About Future Housing: No Difficulty Paying Gas/Electric Bills: No Difficulty Paying for Meds: No Currently Unemployed: No Education: High School Diploma/GED Difficulty w/ Childcare or Family Care: No Living arrangements: [facility] Additional living arrangements comments: [facility] Spiritual care concerns: No Meds Home Medications and Allergies Home Medications Medication Instructions Recorded Confirmed Type Calcium-Vitamin D 1 tab-cap PO DAILY 01/31/24 01/31/24 History acetaminophen 500 mg tablet 1,000 mg PO Q6H PRN Pain (Scale 01/31/24 01/31/24 History Score 1-3) apixaban 5 mg tablet (Eliquis) 5 mg PO BID 01/31/24 01/31/24 History bisacodyl 10 mg rectal suppository 10 mg RECTAL DAILY PRN Constipation 01/31/24 01/31/24 History (Dulcolax (bisacodyl)) buspirone 5 mg tablet 5 mg PO TID 01/31/24 01/31/24 History diphenoxylate-atropine 2.5 1 tablet PO TID PRN Diarrhea 01/31/24 01/31/24 History mg-0.025 mg tablet (Lomotil) gabapentin 100 mg tablet 200 mg PO BID 01/31/24 01/31/24 History haloperidol 0.5 mg tablet 0.5 mg PO BID 01/31/24 01/31/24 History hydrocodone 5 mg-acetaminophen 325 1 tablet PO QID PRN Pain (Scale 01/31/24 01/31/24 History mg tablet Score 4-6) lamotrigine 100 mg tablet 100 mg PO BID 01/31/24 01/31/24 History loperamide 2 mg capsule 2 mg PO Q4H PRN Diarrhea 01/31/24 01/31/24 History lorazepam 0.5 mg tablet 0.5 mg PO BID PRN Anxiety 01/31/24 01/31/24 History magnesium citrate (Citroma oral 296 ml PO DAILY PRN Constipation 01/31/24 01/31/24 History solution) magnesium hydroxide 400 mg/5 mL 30 ml PO DAILY PRN Constipation 01/31/24 01/31/24 History oral suspension (Milk of Magnesia) mecobalamin (vitamin B12) 1,000 1,000 mcg PO DAILY 01/31/24 01/31/24 History mcg chewable tablet metoclopramide HCl 5 mg tablet 5 mg PO TID 01/31/24 01/31/24 History (Reglan) midodrine 5 mg tablet 5 mg PO TID PRN Hypotension 01/31/24 01/31/24 History multivit with minerals-iron 18 1 tablet PO DAILY 01/31/24 01/31/24 History mg-folic ac 400 mcg-vit K 25 mcg tablet (Adults Multivitamin) ondansetron 4 mg disintegrating 4 mg PO Q6H 01/31/24 01/31/24 History tablet pantoprazole 40 mg tablet,delayed 40 mg PO DAILY 01/31/24 01/31/24 History release paroxetine HCl 40 mg tablet 40 mg PO DAILY 01/31/24 01/31/24 History quetiapine 400 mg tablet 400 mg PO HS 01/31/24 01/31/24 History quetiapine 50 mg tablet 50 mg PO DAILY 01/31/24 01/31/24 History Allergies Allergy/AdvReac Type Severity Reaction Status Date / Time fluconazole Allergy Unknown Verified 01/31/24 08:27 Vital Signs Vital Signs - 24 hr 01/31/24 21:51 01/31/24 20:00 01/31/24 22:00 Temperature 98.5 F Pulse Rate 119 H 120 H Respiratory Rate 16 Blood Pressure 144/95 H Pulse Oximetry 95 100 Oxygen Delivery Room Air 02/01/24 02:00 02/01/24 00:03 02/01/24 01:58 Temperature 98.0 F Pulse Rate 131 H 133 H 130 H Respiratory Rate 16 Blood Pressure 102/66 Pulse Oximetry 94 Oxygen Delivery 02/01/24 04:01 02/01/24 06:00 02/01/24 08:00 Temperature 97.7 F Pulse Rate 94 92 Respiratory Rate 16 Blood Pressure 121/81 Pulse Oximetry 98 98 Oxygen Delivery Room Air 02/01/24 08:00 02/01/24 13:38 02/01/24 12:00 Temperature 98.4 F Pulse Rate 85 87 86 Respiratory Rate 16 Blood Pressure 138/88 Pulse Oximetry 91 Oxygen Delivery 02/01/24 16:00 Temperature Pulse Rate 109 H Respiratory Rate Blood Pressure Pulse Oximetry Oxygen Delivery Exam Narrative: General: Fair appearing, gen muscle weakness. HEENT: Atraumatic, PERRL, EOM, moist mucosa. NECK: Supple. Lungs: Faint crackles to bases. Heart: RRR, no murmurs. Abdomen: Soft, non-distended, slightly tender to palpation, hypoactive bowel sounds X4 quadrants. Extremities: Acyanotic, no edema. Skin: Warm and dry with no lesions. Neuro: Well oriented. CN II-XII Grossly intact. Psych: Calm and co-operative. Results Labs 02/01/24 06:25 02/01/24 06:25 Labs: Short CBC 02/01/24 Range/Units 06:25 WBC 10.4 H (4.5-10.0) K/mm3 Hgb 10.3 L (12.0-15.0) g/dL Hct 34.9 L (37.0-47.0) % Plt Count 233 (150-375) k/mm3 BMP 02/01/24 06:25 Sodium 133 L Potassium 4.1 Chloride 103 Carbon Dioxide 24 BUN 29 H Creatinine 1.10 H Glucose 143 H Calcium 8.7 Liver Function 02/01/24 Range/Units 06:25 Total Bilirubin 0.8 (0.2-1.3) mg/dL AST 20 (14-36) U/L ALT 12 (6-35) U/L Alkaline Phosphatase 84 (38-126) U/L Albumin 3.6 (3.5-5.1) g/dL
--- NOTE | 2024-02-02 18:02 | PM.TDS ---
Transfer Discharge Sum: Prov Provider Date of admission: 01/31/24 12:50 Primary care physician: Janey Warren, PROFESSOR OF [employer]ARLY CHILDHOOD EDUCATION Admitting clinician: Alivia Vincent MD Consults: 01/31/24 Consult to Physician Routine Comment: Consulting Provider: Mindy Mendoza Reason for consultation: small bowel obstruction Has provider been notified: Yes 02/01/24 Consult to Physician Routine Comment: Spoke with 01/31 1200 ([facility] [place]) Consulting Provider: Manjeet Rush fisher scallop/MD group to consult: Gastroenterology Reason for consultation: Possible distal esophageal obstruction, unable to pass NG Has provider been notified: Yes Attending physician on discharge: Venkat Mahan Discharging clinician: Navin Solomon Anticipated date of transfer: 02/01/24 Receiving physician/facility: [facility] DS: Admitting Diagnosis Discharge Date 02/01/24 Admitting Diagnosis SBO DS: Discharge Diagnosis Discharge Diagnosis (1) Small bowel obstruction: Code(s): K56.609 - Unspecified intestinal obstruction, unspecified as to partial versus complete obstruction Status: Acute Assessment and Plan: - CT abd/pelvis Small bowel obstruction, transition point of the distal small bowel, as detailed above. Probable bibasilar atelectatic change. Correlate clinically for left basilar pneumonia. Impression fractures of T12 and L2, age-indeterminate. Calcified uterine fibroids. - bowel rest, NG unable to be placed in ED. - General surgery unable to place N-G tube. - Patient with Hx of hiatal hernia repair with possible Richa Fundoplication. - General surgery unable to advance NG to stomach, also contrast unable to advance from distal esophagus to stomach > 10 mins. - general surgery recommends pt be transferred to [facility] where pt's hiatal hernia sx was previously done. - [facility] Transfer Center contacted ant pt accepted for transfer by her previous general surgeon to [facility]. - Continue IVF hydration with NPO status. - monitor I&Os - Continue Zosyn started on 01/30 - c. diff and stool culture pending. - hold Eliquis for now, started on SCDs. (2) Sepsis: Qualifiers: Sepsis type: sepsis due to unspecified organism Sepsis acute organ dysfunction status: with acute organ dysfunction Severe sepsis acute organ dysfunction type: acute respiratory failure Acute respiratory failure type: with hypoxia Severe sepsis shock status: without septic shock Qualified Code(s): A41.9 - Sepsis, unspecified organism; R65.20 - Severe sepsis without septic shock; J96.01 - Acute respiratory failure with hypoxia Code(s): A41.9 - Sepsis, unspecified organism Status: Acute Assessment and Plan: - mets SIRS criteria on admission: HR, RR. Borderline hypoxia. - lactic acid: 4.8 -> 3.6 >> 2.0 - Procalcitonin 0.5 - 30 mL/kg = 1770, 2L bolus given. - suspected source: possible abdominal etiology given obstruction vs PNA - CT chest suggestive of possible Left basilar PNA. - started on Zosyn in azithromycin on 01/30 - blood cultures drawn on 01/30 pending. - UA: Cloudy, 3+ protein, few epithelial cells. (3) Pneumonia: Qualifiers: Laterality: left Lung location: lower lobe of lung Pneumonia type: due to unspecified organism Qualified Code(s): J18.9 - Pneumonia, unspecified organism Code(s): J18.9 - Pneumonia, unspecified organism Status: Acute Assessment and Plan: - CT abd/pelvis: possible left basilar pneumonia, correlate clinically. - given borderline hypoxia, CXR ordered. - Abx for coverage of possible community-acquired pneumonia - Started on Zosyn and doxycycline on 01/30 - MRSA PCR negative. - Acute Viral PCR negative. - Patient currently with O2 sats borderline at 91-92% on RA. - supportive care (4) CKD (chronic kidney disease): Qualifiers: Chronic kidney disease stage: stage 3 (moderate) Chronic kidney disease stage 3 subtype: stage 3a (GFR 45-59) Qualified Code(s): N18.31 - Chronic kidney disease, stage 3a Code(s): N18.9 - Chronic kidney disease, unspecified Status: Chronic Assessment and Plan: - creatinine 1.3 and GFR 40, no baseline available - Continue IV fluids hydration. - trend renal panel. - trend electrolytes, correct as needed (5) Controlled diabetes mellitus with hyperglycemia: Code(s): E11.65 - Type 2 diabetes mellitus with hyperglycemia Status: Chronic Assessment and Plan: - hypoglycemia protocol - POC blood glucose ACHS - no current home medications. - Monitor blood-glucose for now low dose TIDWM, with poor PO intake. - A1C ordered on admission. Plan Transfer to [facility]. Transfer Discharge Sum: Med Medications Active and Home Medications: Home Medications Calcium-Vitamin D 1 tab-cap PO DAILY 01/31/24 [History Confirmed 01/31/24] acetaminophen 500 mg tablet 1,000 mg PO Q6H PRN Pain (Scale Score 1-3) 01/31/24 [History Confirmed 01/31/24] apixaban 5 mg tablet (Eliquis) 5 mg PO BID 01/31/24 [History Confirmed 01/31/24] bisacodyl 10 mg rectal suppository (Dulcolax (bisacodyl)) 10 mg RECTAL DAILY PRN Constipation 01/31/24 [History Confirmed 01/31/24] buspirone 5 mg tablet 5 mg PO TID 01/31/24 [History Confirmed 01/31/24] diphenoxylate-atropine 2.5 mg-0.025 mg tablet (Lomotil) 1 tablet PO TID PRN Diarrhea 01/31/24 [History Confirmed 01/31/24] gabapentin 100 mg tablet 200 mg PO BID 01/31/24 [History Confirmed 01/31/24] haloperidol 0.5 mg tablet 0.5 mg PO BID 01/31/24 [History Confirmed 01/31/24] hydrocodone 5 mg-acetaminophen 325 mg tablet 1 tablet PO QID PRN Pain (Scale Score 4-6) 01/31/24 [History Confirmed 01/31/24] lamotrigine 100 mg tablet 100 mg PO BID 01/31/24 [History Confirmed 01/31/24] loperamide 2 mg capsule 2 mg PO Q4H PRN Diarrhea 01/31/24 [History Confirmed 01/31/24] lorazepam 0.5 mg tablet 0.5 mg PO BID PRN Anxiety 01/31/24 [History Confirmed 01/31/24] magnesium citrate (Citroma oral solution) 296 ml PO DAILY PRN Constipation 01/31/24 [History Confirmed 01/31/24] magnesium hydroxide 400 mg/5 mL oral suspension (Milk of Magnesia) 30 ml PO DAILY PRN Constipation 01/31/24 [History Confirmed 01/31/24] mecobalamin (vitamin B12) 1,000 mcg chewable tablet 1,000 mcg PO DAILY 01/31/24 [History Confirmed 01/31/24] metoclopramide HCl 5 mg tablet (Reglan) 5 mg PO TID 01/31/24 [History Confirmed 01/31/24] midodrine 5 mg tablet 5 mg PO TID PRN Hypotension 01/31/24 [History Confirmed 01/31/24] multivit with minerals-iron 18 mg-folic ac 400 mcg-vit K 25 mcg tablet (Adults Multivitamin) 1 tablet PO DAILY 01/31/24 [History Confirmed 01/31/24] ondansetron 4 mg disintegrating tablet 4 mg PO Q6H 01/31/24 [History Confirmed 01/31/24] pantoprazole 40 mg tablet,delayed release 40 mg PO DAILY 01/31/24 [History Confirmed 01/31/24] paroxetine HCl 40 mg tablet 40 mg PO DAILY 01/31/24 [History Confirmed 01/31/24] quetiapine 400 mg tablet 400 mg PO HS 01/31/24 [History Confirmed 01/31/24] quetiapine 50 mg tablet 50 mg PO DAILY 01/31/24 [History Confirmed 01/31/24] Transfer Discharge Sum: Hosp Hospital Course Hospital course: Cristel Dumont is a 73 year old female who was transferred to this facility with reports of nausea and vomiting and abdominal discomfort from the care home that she resides. CT abd/pelvis was consistent with SBO and general surgery was consulted. Patient was referred to Interventional Radiology for fluoroscopy guided N-G tube placement but this was unsuccessful likely secondary to a hiatal hernia with Richa fundoplication which also prevented the passage of contrast in the distal esophagus into the stomach over the course of 10 minutes. After unsuccessful attempt to place N-G tube for stomach decompression, general surgery and IR recommended patient transfer to [facility] where she had her hiatal hernia repair about a year ago. Patient met sepsis protocol on admission and CT abd/pelvis showed possible left basilar PNA. She was treated with fluid bolus and started on broad-spectrum IV abx after cultures were collected. Patient was maintained on 2L/NC supplemental O2 to maintain sats > 90 % after an episode of hypoxia in the ER. She was hydrated with IVF prior to discharge, with blood glucose levels closely monitored. Patient was accepted at [facility] where her general surgeon practiced as well and she was transferred in a stable condition, with no acute distress noted or reported prior to discharge. Time Spent with Patient Time attestation: Total time spent providing and/or coordinating transfer services: Total time spent: Greater than 30 minutes Exam Narrative: General: Fair appearing, gen muscle weakness. HEENT: Atraumatic, PERRL, EOM, moist mucosa. NECK: Supple. Lungs: Faint crackles to bases. Heart: RRR, no murmurs. Abdomen: Soft, non-distended, slightly tender to palpation, hypoactive bowel sounds X4 quadrants. Extremities: Acyanotic, no edema. Skin: Warm and dry with no lesions. Neuro: Well oriented. CN II-XII Grossly intact. Psych: Calm and co-operative.
== END 2024-02-01 20:48 | disposition short-term general hospital (02) | DRG 871 ==
LOC: ANHED 08:46 → ANH3MEDSUR 13:25
PROVIDERS: Student in an Organized Health Care Education/Training Program; Admitting Provider Internal Medicine; Emergency Provider Student in an Organized Health Care Education/Training Program; PCP Nurse Practitioner Psychiatric/Mental Health; Visit Provider Nurse Practitioner Adult Health
DX: A41.9 Sepsis, unspecified organism (principal); J18.9 Pneumonia, unspecified organism; J96.01 Acute respiratory failure with hypoxia; K56.609 Unspecified intestinal obstruction, unspecified as to partial versus complete obstruction; K44.0 Diaphragmatic hernia with obstruction, without gangrene; R65.20 Severe sepsis without septic shock; E11.22 Type 2 diabetes mellitus with diabetic chronic kidney disease; E11.65 Type 2 diabetes mellitus with hyperglycemia; F31.9 Bipolar disorder, unspecified; N18.31 Chronic kidney disease, stage 3a; Z85.038 Personal history of other malignant neoplasm of large intestine; Z66 Do not resuscitate
CPT/HCPCS: 36415; 36600; 74177; 80053; 81001; 82010; 82805; 82948; 83036; 83605; 83690; 83735; 84145; 85018; 85025; 85055; 87636; 87641; 93005; 96374; 96375; 99285; A9270; J0456; J1171; J2270; J2405; J2470; J2543; J7030; J7050; J7120; Q9967